=== PATIENT | female | born 1980 | race Caucasian/White ===

== ENCOUNTER 2018-04-19 16:05 | Inpatient (IN) | payer MEDICARE, MEDICAID ==
--- NOTE | 2018-04-19 16:38 | ED Physician Chart ---
ED Chief Complaint/HPI - Patient Information Date Seen:: 04/19/18 Time Seen:: 16:25 Chief Complaint:: dysuria History of Present Illness:: Patient's had dysuria for the last 2 weeks. No fever. Patient has been having more back pain than usual. Patient had a urinalysis last week which showed a urinary tract infection. Patient has a decubitus on her medial left buttock. Patient always lays in the prone position. 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 Endocrine: No polyuria, No polydipsia Psychiatric: No prior psych history Hematopoietic: No bruising Allergic/Immuno: No urticaria Neurological: No syncope ED Past Medical History - Past Medical History Past Medical History: HTN, Other (cerebral palsy; dystonic reactions) Family History: Diabetes Melitus, HTN Social History: Non Smoker, No Alcohol Surgical History: other (multiple hip, knee and foot surgeries) Psychiatricy History: None Medication: None Family Medical History - Family Member Mother History Unknown: Yes ED Physical Exam - Physical Examination Other Gen/Cons comments:: Mildly chronically ill-appearing; lying in the prone position Head: Atraumatic Eyes: Lids, conjuctiva normal, PERRL Other Skin comments:: About 2 x 1 cm stage III decubitus medial left hemibuttocks ENMT: External ears, nose nl Neck: No JVD Respiratory: Nl effort/Exclusion, Clear to Auscultation, No Wheeze/Rhonchi/Rales Cardio Vascular: RRR GI: Nondistended : No CVA tenderness Other Extremities comments:: Atrophic lower extremities Neuro/Psych: No focal deficits ED Labs/Radiology/EKG Results - Lab Results Results: Laboratory Results - last 24 hr 04/19/18 04/19/18 17:00 17:00 WBC 10.2 RBC 4.98 Hgb 15.3 Hct 45.5 MCV 91.3 MCH 30.7 MCHC Differential 33.6 RDW 12.7 Plt Count 180 MPV 7.4 Neutrophils % 85.7 H Lymphocytes % 9.7 L Monocytes % 4.0 Eosinophils % 0.6 Basophils % 0.0 Sodium 134 L Potassium 4.3 Chloride 103 Carbon Dioxide 22.8 Anion Gap 12.5 BUN 15 Creatinine 0.3 L Est GFR ( Amer) > 60.0 Est GFR (Non-Af Amer) > 60.0 BUN/Creatinine Ratio 50.0 Glucose 200 H Calcium 9.5 ED Septic Shock - . Is Septic Shock (SBP<90, OR Lactate>4 mmol\L) present?: No ED Reassessment (Disposition) - Reassessment Reassessment Condition:: Unchanged - Diagnosis Diagnosis:: Stage III decubitus; hyperglycemia; diabetes; cerebral palsy - Patient Disposition Admitted to:: Telemetry Spoke to:: Cliff Davis Admitting Medical Physician:: Cliff Davis Condition at Disposition:: Stable, Unchanged
[2018-04-19 17:08] LABS: % EOSINOPHILS 0.6 % (0.0-5.0); % LYMPHOCYTES 9.7 % (20.0-50.0); % NEUTROPHILS 85.7 % (40.0-80.0); EOSINOPHILE ABSOLUTE 0.1 Th/cmm (0.1-0.4); HEMATOCRIT 45.5 % (41.0-60); HEMOGLOBIN 15.3 gm/dL (12-16); MEAN CELL VOLUME 91.3 fl (81-100); MEAN CORPUSCULAR HEMOGLOBIN 30.7 pg (27.0-31.0); MEAN CORPUSCULAR HGB CONC 33.6 pg (28.0-36.0); MEAN PLATELET VOLUME 7.4 fl; MONOCYTE ABSOLUTE 0.4 Th/cmm (0.3-1.0); NEUTROPHILE ABSOLUTE 8.7 Th/cmm (1.8-8.0); PLATELET COUNT 180 Th/cmm (150-400); RED BLOOD COUNT 4.98 Mil/cmm (3.80-5.10); RED CELL DISTRIBUTION WIDTH 12.7 % (11.5-20.0); WHITE BLOOD COUNT 10.2 Th/cmm (4.8-10.8)
[2018-04-19 17:23] LABS: ANION GAP 12.5 (7.0-16.0); BUN - UREA NITROGEN 15 mg/dL (7-25); CALCIUM SERUM 9.5 mg/dL (8.6-10.3); CARBON DIOXIDE 22.8 mEq/L (21.0-31.0); CHLORIDE 103 mEq/L (98-107); CREATININE - SERUM 0.3 mg/dL (0.6-1.2); GFR AFRICAN-AMERICAN > 60.0 ml/min (>90); GFR NON AFRICAN-AMERICAN > 60.0 ml/min; GLUCOSE 200 mg/dL (70-105); POTASSIUM SERUM 4.3 mEq/L (3.5-5.1); SODIUM SERUM 134 mEq/L (136-145)
[2018-04-19 17:24] LABS: URINE SOURCE RANDOM
[2018-04-19 17:32] LABS: URINE BILIRUBIN NEGATIVE (NEGATIVE); URINE BLOOD NEGATIVE (NEGATIVE); URINE GLUCOSE (UA) NEGATIVE (NEGATIVE); URINE KETONE NEGATIVE (NEGATIVE); URINE LEUKOCYTE ESTERASE TRACE (NEGATIVE); URINE MICROSCOPIC INDICATED? YES; URINE NITRATE NEGATIVE (NEGATIVE); URINE PROTEIN NEGATIVE (NEGATIVE); URINE UROBILINOGEN 0.2 E.U./dL (0.2 - 1.0)
[2018-04-19 17:58] LABS: URINE CLARITY CLEAR (CLEAR); URINE COLOR YELLOW
[2018-04-19 17:59] LABS: URINE BACTERIA NONE SEEN /hpf (NONE SEEN); URINE EPITHELIAL CELLS OCCASIONAL /lpf (FEW); URINE RBC NONE SEEN /hpf (0-5)
[2018-04-19] MEDS ORDERED: guaiFENesin 200 MG/10 ML UDC PO PRN (18:34)
[2018-04-19] MEDS ORDERED: Sodium Chloride 0.45% 1,000 ML IV SCH (18:45)
[2018-04-19] MEDS: INSULIN ASPART, RECOMBINANT 100 UNITS/ML SUBQ SCH (21:55)
[2018-04-19] MEDS: Magnesium Hydroxide (MOM) 30 mL UDC PO SCH (21:58)
[2018-04-20 07:07] VITALS: BP 124/82
[2018-04-20] MEDS: INSULIN ASPART, RECOMBINANT 100 UNITS/ML SUBQ SCH ×4 (07:41→20:26)
[2018-04-20] MEDS: Insulin Detemir 100 units/mL 10mL Vial SUBQ SCH ×2 (09:20→09:28)
[2018-04-20] MEDS: Multivitamin w/ Minerals Tab PO SCH (09:20)
[2018-04-20] MEDS: Triamcinolone Acet 0.025% Cream 15 gm TP SCH ×2 (09:26→17:22)
--- NOTE | 2018-04-20 12:38 | Internal Medicine Prog Note ---
Internal Medicine Subjective - Subjective Service Date: 04/20/18 ([id number] hnp dictated) Internal Medicine Objective - Results Result Diagrams: 04/19/18 17:00 04/19/18 17:00 Recent Labs: Laboratory Last Values WBC 10.2 Th/cmm (4.8-10.8) 04/19/18 17:00 RBC 4.98 Mil/cmm (3.80-5.10) 04/19/18 17:00 Hgb 15.3 gm/dL (12-16) 04/19/18 17:00 Hct 45.5 % (41.0-60) 04/19/18 17:00 MCV 91.3 fl (81-100) 04/19/18 17:00 MCH 30.7 pg (27.0-31.0) 04/19/18 17:00 MCHC Differential 33.6 pg (28.0-36.0) 04/19/18 17:00 RDW 12.7 % (11.5-20.0) 04/19/18 17:00 Plt Count 180 Th/cmm (150-400) 04/19/18 17:00 MPV 7.4 fl 04/19/18 17:00 Neutrophils % 85.7 % (40.0-80.0) H 04/19/18 17:00 Lymphocytes % 9.7 % (20.0-50.0) L 04/19/18 17:00 Monocytes % 4.0 % (2.0-10.0) 04/19/18 17:00 Eosinophils % 0.6 % (0.0-5.0) 04/19/18 17:00 Basophils % 0.0 % (0.0-2.0) 04/19/18 17:00 Sodium 134 mEq/L (136-145) L 04/19/18 17:00 Potassium 4.3 mEq/L (3.5-5.1) 04/19/18 17:00 Chloride 103 mEq/L (98-107) 04/19/18 17:00 Carbon Dioxide 22.8 mEq/L (21.0-31.0) 04/19/18 17:00 Anion Gap 12.5 (7.0-16.0) 04/19/18 17:00 BUN 15 mg/dL (7-25) 04/19/18 17:00 Creatinine 0.3 mg/dL (0.6-1.2) L 04/19/18 17:00 Est GFR ( Amer) > 60.0 ml/min (>90) 04/19/18 17:00 Est GFR (Non-Af Amer) > 60.0 ml/min 04/19/18 17:00 BUN/Creatinine Ratio 50.0 04/19/18 17:00 Glucose 200 mg/dL (70-105) H 04/19/18 17:00 POC Glucose 211 MG/DL (70 - 105) H 04/20/18 11:33 Calcium 9.5 mg/dL (8.6-10.3) 04/19/18 17:00 Urine Source RANDOM 04/19/18 17:05 Urine Color YELLOW 04/19/18 17:05 Urine Clarity CLEAR (CLEAR) 04/19/18 17:05 Urine pH 7.0 (4.6 - 8.0) 04/19/18 17:05 Ur Specific [place] 1.010 (1.005-1.030) 04/19/18 17:05 Urine Protein NEGATIVE mg/dL (NEGATIVE) 04/19/18 17:05 Urine Glucose (UA) NEGATIVE mg/dL (NEGATIVE) 04/19/18 17:05 Urine Ketones NEGATIVE mg/dL (NEGATIVE) 04/19/18 17:05 Urine Blood NEGATIVE (NEGATIVE) 04/19/18 17:05 Urine Nitrate NEGATIVE (NEGATIVE) 04/19/18 17:05 Urine Bilirubin NEGATIVE (NEGATIVE) 04/19/18 17:05 Urine Urobilinogen 0.2 E.U./dL (0.2 - 1.0) 04/19/18 17:05 Ur Leukocyte Esterase TRACE (NEGATIVE) H 04/19/18 17:05 Urine RBC NONE SEEN /hpf (0-5) 04/19/18 17:05 Urine WBC 2-5 /hpf (0-5) 04/19/18 17:05 Ur Epithelial Cells OCCASIONAL /lpf (FEW) 04/19/18 17:05 Urine Bacteria NONE SEEN /hpf (NONE SEEN) 04/19/18 17:05 - Physical Exam Vitals and I&O: Vital Signs Temp 98.5 F 04/20/18 11:29 Pulse 90 04/20/18 11:29 Resp 18 04/20/18 11:29 BP 110/73 09/21/18 11:29 Pulse Ox 96 04/20/18 11:29 Intake & Output 04/19/18 04/20/18 04/20/18 18:59 06:59 18:59 Intake Total 50 Balance 50 Weight (lbs) 101 lb 99 lb 11.2 oz Intake: Intake, IV Amount 50 Cefepime 1 gm In Dextrose 50 5% 50 ml @ 100 mls/hr IV Q12H [facility] Rx#:[id number] Other: # Voids 2 Weight Source Patient stated Bedscale Active Medications: Current Medications Acetaminophen (Tylenol) 650 mg PO Q4H PRN PRN Reason: Pain Or Fever above 101 Stop: 06/18/18 18:33 Ascorbic Acid (Vitamin C) 500 mg PO DAILY [facility] Stop: 06/19/18 08:59 Last Admin: 04/20/18 09:20 Dose: 500 mg Baclofen (Lioresal) 20 mg PO BID [facility] Stop: 06/19/18 08:59 Last Admin: 04/20/18 09:20 Dose: 20 mg Clotrimazole (Lotrimin 1% Cream) 1 appl TP BID [facility] Stop: 06/19/18 08:59 Last Admin: 04/20/18 09:26 Dose: 1 appl Diphenhydramine HCl (Benadryl) 50 mg PO Q12H PRN PRN Reason: Itching Stop: 06/19/18 01:04 Guaifenesin (Robitussin) 200 mg PO Q4HR PRN PRN Reason: Cough or Congestion Stop: 06/18/18 18:33 Cefepime HCl 1 gm/ Dextrose 50 mls @ 100 mls/hr IV Q12H [facility] Stop: 06/18/18 18:44 Last Admin: 04/20/18 06:13 Dose: 100 mls/hr Sodium Chloride (Nacl 0.45%) 1,000 mls @ 80 mls/hr IV .[id number] [facility] Stop: 06/18/18 18:44 Last Admin: 04/19/18 21:44 Dose: 80 mls/hr Insulin Aspart (Novolog) 0 units SUBQ ACHS [facility]; Protocol Stop: 06/18/18 20:59 Last Admin: 04/20/18 12:21 Dose: 2 units Insulin Detemir (Levemir Insulin) 3 units SUBQ QAM [facility] Stop: 06/19/18 08:59 Last Admin: 04/20/18 09:28 Dose: Not Given Ketoconazole (Nizoral 2% Cream) 1 appl TP QMON [facility] Stop: 06/18/18 18:44 Last Admin: 04/19/18 23:04 Dose: Not Given Magnesium Hydroxide (Milk Of Magnesia) 30 ml PO PRN [facility] Stop: 06/18/18 18:44 Last Admin: 04/19/18 21:58 Dose: 30 ml Mycophenolate Mofetil (Cellcept) 1,500 mg PO BID [facility] Stop: 06/19/18 08:59 Last Admin: 04/20/18 09:19 Dose: 1,500 mg Ondansetron HCl (Zofran) 4 mg IV Q8H PRN PRN Reason: Nausea / Vomiting Stop: 06/18/18 18:33 Prednisone (Deltasone) 5 mg PO QAM [facility] Stop: 06/19/18 08:59 Last Admin: 04/20/18 09:19 Dose: 5 mg Silver Sulfadiazine (Ssd) 1 appl TP DAILY [facility]; Protocol Stop: 06/19/18 08:59 Last Admin: 04/20/18 09:27 Dose: 1 appl Tramadol HCl (Ultram) 50 mg PO Q6HR PRN PRN Reason: Pain (Moderate) Stop: 06/19/18 00:00 Last Admin: 04/19/18 21:32 Dose: 50 mg Triamcinolone Acetonide (Kenalog 0.025% Cre) 1 appl TP BID [facility] Stop: 06/19/18 08:59 Last Admin: 04/20/18 09:26 Dose: 1 appl Vitamin D (Vitamin D) 400 iu PO DAILY [facility] Stop: 06/19/18 12:59
[2018-04-20] MEDS ORDERED: Fleet Enema 135 mL RC ONE (15:12)
[2018-04-20] MEDS ORDERED: Probiotic Screen MC PRN (15:15)
--- NOTE | 2018-04-20 17:01 | History & Physical ---
ADMIT DATE: 04/20/2018 COVERING FOR: Dr. Cliff Davis. CHIEF COMPLAINT: Dysuria. HISTORY OF PRESENT ILLNESS: This is a 37-year-old female who is well known to me from [facility], admitted here to the telemetry unit due to a 2-week history of dysuria. The patient has been having more back pain than usual. For further management, the patient is now admitted to the telemetry unit. No reports of any fevers at [facility]. PAST MEDICAL HISTORY: Hypertension, cerebral palsy, dystonic reactions. FAMILY HISTORY: Noncontributory. SOCIAL HISTORY: The patient is a resident of [facility]. SURGICAL HISTORY: Multiple hip, knee and foot surgeries. MEDICATIONS: Vitamin C, baclofen, clotrimazole, Robitussin, insulin aspart, insulin detemir, Nizoral 2% cream, CellCept, prednisone. FAMILY HISTORY: Noncontributory. REVIEW OF SYSTEMS: GENERAL: Denies any fevers and chills. CARDIOVASCULAR: Denies chest pain. RESPIRATORY: Denies shortness of breath. GASTROINTESTINAL: Denies nausea, vomiting, abdominal pain. GENITOURINARY: Complaints of dysuria. All other systems are reviewed and are negative. PHYSICAL EXAMINATION: Young female, awake, alert, in no apparent distress. VITAL SIGNS: Temperature 98.5, heart rate 90, blood pressure 110/73, respiration 18, O2 96%. HEENT: Head: Normocephalic, atraumatic. NECK: Supple. No mass. LUNGS: Clear bilaterally. HEART: Regular rate and rhythm. No murmurs or gallops. ABDOMEN: Soft, nontender, nondistended. SKIN: The patient's left buttocks noted with 2 x stage 3 decubitus ulceration. LABORATORY DATA: WBC 10.2, H and H 15.3 and 45.5, platelet of 180. Sodium 134, potassium 4.2, chloride 103, BUN 15, creatinine 0.3. ASSESSMENT: Acute urinary tract infection, hypertension, cerebral possible palsy. PLAN: We will admit the patient to the telemetry unit. We will give IV antibiotics of Maxipime 1 gram IV q.12 hours. We will send urine for culture. Give IV fluids for hydration as well. We will have followup labs for tomorrow morning. We will continue to monitor this patient. JOB# [id number]
[2018-04-20] MEDS: Sodium Chloride 0.45% 1,000 ML IV SCH (17:21)
[2018-04-20] MEDS: Magnesium Hydroxide (MOM) 30 mL UDC PO SCH (18:19)
[2018-04-21 06:46] LABS: ALB/GLOB RATIO 1.5 (1.0-1.8); ALBUMIN 3.5 gm/dL (3.7-5.3); ALKALINE PHOSPHATASE 413 U/L (34-104); ANION GAP 10.8 (7.0-16.0); BILIRUBIN,TOTAL 0.7 mg/dL (0.3-1.0); BUN - UREA NITROGEN 13 mg/dL (7-25); CALCIUM SERUM 9.2 mg/dL (8.6-10.3); CHLORIDE 106 mEq/L (98-107); CREATININE - SERUM 0.3 mg/dL (0.6-1.2); GFR AFRICAN-AMERICAN > 60.0 ml/min (>90); GFR NON AFRICAN-AMERICAN > 60.0 ml/min; GLUCOSE 79 mg/dL (70-105); POTASSIUM SERUM 3.8 mEq/L (3.5-5.1); SGOT 73 U/L (13-39); SGPT/ALT 86 U/L (7-52); SODIUM SERUM 138 mEq/L (136-145); TOTAL PROTEIN,SERUM 5.9 gm/dL (6.0-8.3)
[2018-04-21 06:59] LABS: HEMATOCRIT 43.5 % (41.0-60); HEMOGLOBIN 14.5 gm/dL (12-16); MEAN CELL VOLUME 92.5 fl (81-100); MEAN CORPUSCULAR HEMOGLOBIN 30.8 pg (27.0-31.0); MEAN CORPUSCULAR HGB CONC 33.3 pg (28.0-36.0); PLATELET COUNT 155 Th/cmm (150-400); RED CELL DISTRIBUTION WIDTH 13.4 % (11.5-20.0)
[2018-04-21 07:00] LABS: % BASOPHILS 0.6 % (0.0-2.0); % EOSINOPHILS 2.2 % (0.0-5.0); % LYMPHOCYTES 34.3 % (20.0-50.0); % MONOCYTES 11.1 % (2.0-10.0); % NEUTROPHILS 51.8 % (40.0-80.0); EOSINOPHILE ABSOLUTE 0.2 Th/cmm (0.1-0.4); LYMPHOCYTE ABSOLUTE 2.7 Th/cmm (1.5-3.0); MEAN PLATELET VOLUME 7.8 fl; MONOCYTE ABSOLUTE 0.9 Th/cmm (0.3-1.0); NEUTROPHILE ABSOLUTE 4.2 Th/cmm (1.8-8.0)
[2018-04-21] MEDS: INSULIN ASPART, RECOMBINANT 100 UNITS/ML SUBQ SCH ×4 (07:26→21:18)
[2018-04-21] MEDS: Insulin Detemir 100 units/mL 10mL Vial SUBQ SCH (08:53)
[2018-04-21] MEDS: Multivitamin w/ Minerals Tab PO SCH (08:54)
[2018-04-21] MEDS: Triamcinolone Acet 0.025% Cream 15 gm TP SCH ×2 (09:02→16:37)
--- NOTE | 2018-04-21 15:56 | Internal Medicine Prog Note ---
Internal Medicine Subjective - Subjective Service Date: 04/21/18 Patient seen and examined:: with staff Patient is:: awake Per staff patient has:: tolerating meds Internal Medicine Objective - Results Result Diagrams: 04/21/18 05:50 04/21/18 05:50 Recent Labs: Laboratory Last Values WBC 8.0 Th/cmm (4.8-10.8) 04/21/18 05:50 RBC 4.70 Mil/cmm (3.80-5.10) 04/21/18 05:50 Hgb 14.5 gm/dL (12-16) 04/21/18 05:50 Hct 43.5 % (41.0-60) 04/21/18 05:50 MCV 92.5 fl (81-100) 04/21/18 05:50 MCH 30.8 pg (27.0-31.0) 04/21/18 05:50 MCHC Differential 33.3 pg (28.0-36.0) 04/21/18 05:50 RDW 13.4 % (11.5-20.0) 04/21/18 05:50 Plt Count 155 Th/cmm (150-400) 04/21/18 05:50 MPV 7.8 fl 04/21/18 05:50 Neutrophils % 51.8 % (40.0-80.0) 04/21/18 05:50 Lymphocytes % 34.3 % (20.0-50.0) 04/21/18 05:50 Monocytes % 11.1 % (2.0-10.0) H 04/21/18 05:50 Eosinophils % 2.2 % (0.0-5.0) 04/21/18 05:50 Basophils % 0.6 % (0.0-2.0) 04/21/18 05:50 Sodium 138 mEq/L (136-145) 04/21/18 05:50 Potassium 3.8 mEq/L (3.5-5.1) 04/21/18 05:50 Chloride 106 mEq/L (98-107) 04/21/18 05:50 Carbon Dioxide 25.0 mEq/L (21.0-31.0) 04/21/18 05:50 Anion Gap 10.8 (7.0-16.0) 04/21/18 05:50 BUN 13 mg/dL (7-25) 04/21/18 05:50 Creatinine 0.3 mg/dL (0.6-1.2) L 04/21/18 05:50 Est GFR ( Amer) > 60.0 ml/min (>90) 04/21/18 05:50 Est GFR (Non-Af Amer) > 60.0 ml/min 04/21/18 05:50 BUN/Creatinine Ratio 43.3 04/21/18 05:50 Glucose 79 mg/dL (70-105) 04/21/18 05:50 POC Glucose 198 MG/DL (70 - 105) H 04/21/18 11:33 Calcium 9.2 mg/dL (8.6-10.3) 04/21/18 05:50 Total Bilirubin 0.7 mg/dL (0.3-1.0) 04/21/18 05:50 AST 73 U/L (13-39) H 04/21/18 05:50 ALT 86 U/L (7-52) H 04/21/18 05:50 Alkaline Phosphatase 413 U/L (34-104) H 04/21/18 05:50 Total Protein 5.9 gm/dL (6.0-8.3) L 04/21/18 05:50 Albumin 3.5 gm/dL (3.7-5.3) L 04/21/18 05:50 Globulin 2.4 gm/dL 04/21/18 05:50 Albumin/Globulin Ratio 1.5 (1.0-1.8) 04/21/18 05:50 TSH 1.73 uIU/ml (0.34-5.60) 04/21/18 05:50 Urine Source RANDOM 04/19/18 17:05 Urine Color YELLOW 04/19/18 17:05 Urine Clarity CLEAR (CLEAR) 04/19/18 17:05 Urine pH 7.0 (4.6 - 8.0) 04/19/18 17:05 Ur Specific [place] 1.010 (1.005-1.030) 04/19/18 17:05 Urine Protein NEGATIVE mg/dL (NEGATIVE) 04/19/18 17:05 Urine Glucose (UA) NEGATIVE mg/dL (NEGATIVE) 04/19/18 17:05 Urine Ketones NEGATIVE mg/dL (NEGATIVE) 04/19/18 17:05 Urine Blood NEGATIVE (NEGATIVE) 04/19/18 17:05 Urine Nitrate NEGATIVE (NEGATIVE) 04/19/18 17:05 Urine Bilirubin NEGATIVE (NEGATIVE) 04/19/18 17:05 Urine Urobilinogen 0.2 E.U./dL (0.2 - 1.0) 04/19/18 17:05 Ur Leukocyte Esterase TRACE (NEGATIVE) H 04/19/18 17:05 Urine RBC NONE SEEN /hpf (0-5) 04/19/18 17:05 Urine WBC 2-5 /hpf (0-5) 04/19/18 17:05 Ur Epithelial Cells OCCASIONAL /lpf (FEW) 04/19/18 17:05 Urine Bacteria NONE SEEN /hpf (NONE SEEN) 04/19/18 17:05 - Physical Exam Vitals and I&O: Vital Signs Temp 97.8 F 04/21/18 15:44 Pulse 78 04/21/18 15:44 Resp 17 04/21/18 15:44 BP 111/68 04/21/18 15:44 Pulse Ox 95 04/21/18 15:44 Intake & Output 04/20/18 04/21/18 04/21/18 18:59 06:59 18:59 Intake Total 700 50 Balance 700 50 Weight (lbs) 101 lb 101 lb Intake: Intake, IV Amount 100 50 Cefepime 1 gm In Dextrose 100 50 5% 50 ml @ 100 mls/hr IV Q12H [facility] Rx#:[id number] Oral 600 Other: # Voids 4 3 # Bowel Movements 1 Stool Characteristics Formed Formed Weight Source Bedscale Bedscale Active Medications: Current Medications Acetaminophen (Tylenol) 650 mg PO Q4H PRN PRN Reason: Pain Or Fever above 101 Stop: 06/18/18 18:33 Ascorbic Acid (Vitamin C) 500 mg PO DAILY [facility] Stop: 06/19/18 08:59 Last Admin: 04/21/18 08:54 Dose: 500 mg Baclofen (Lioresal) 20 mg PO BID [facility] Stop: 06/19/18 08:59 Last Admin: 04/21/18 08:54 Dose: 20 mg Clotrimazole (Lotrimin 1% Cream) 1 appl TP BID [facility] Stop: 06/19/18 08:59 Last Admin: 04/21/18 09:02 Dose: 1 appl Diphenhydramine HCl (Benadryl) 50 mg PO Q12H PRN PRN Reason: Itching Stop: 06/19/18 01:04 Guaifenesin (Robitussin) 200 mg PO Q4HR PRN PRN Reason: Cough or Congestion Stop: 06/18/18 18:33 Cefepime HCl 1 gm/ Dextrose 50 mls @ 100 mls/hr IV Q12H [facility] Stop: 06/18/18 18:44 Last Infusion: 04/21/18 08:15 Dose: Infused Sodium Chloride (Nacl 0.45%) 1,000 mls @ 60 mls/hr IV .[id number] [facility] Stop: 06/19/18 13:29 Last Admin: 04/20/18 17:21 Dose: 60 mls/hr Insulin Aspart (Novolog) 0 units SUBQ ACHS [facility]; Protocol Stop: 06/18/18 20:59 Last Admin: 04/21/18 12:40 Dose: Not Given Insulin Detemir (Levemir Insulin) 3 units SUBQ QAM [facility] Stop: 06/19/18 08:59 Last Admin: 04/21/18 08:53 Dose: Not Given Ketoconazole (Nizoral 2% Cream) 1 appl TP QMON [facility] Stop: 06/18/18 18:44 Last Admin: 04/19/18 23:04 Dose: Not Given Magnesium Hydroxide (Milk Of Magnesia) 30 ml PO PRN [facility] Stop: 06/18/18 18:44 Last Admin: 04/20/18 18:19 Dose: 30 ml Miscellaneous (Probiotic Screen) 1 ea MC PRN PRN PRN Reason: PROTOCOL Stop: 06/19/18 15:14 Mycophenolate Mofetil (Cellcept) 1,500 mg PO BID [facility] Stop: 06/19/18 08:59 Last Admin: 04/21/18 09:01 Dose: 1,500 mg Ondansetron HCl (Zofran) 4 mg IV Q8H PRN PRN Reason: Nausea / Vomiting Stop: 06/18/18 18:33 Prednisone (Deltasone) 5 mg PO QAM [facility] Stop: 06/19/18 08:59 Last Admin: 04/21/18 08:54 Dose: 5 mg Silver Sulfadiazine (Ssd) 1 appl TP DAILY [facility]; Protocol Stop: 06/19/18 08:59 Last Admin: 04/21/18 09:02 Dose: 1 appl Tramadol HCl (Ultram) 50 mg PO Q6HR PRN PRN Reason: Pain (Moderate) Stop: 06/19/18 00:00 Last Admin: 04/19/18 21:32 Dose: 50 mg Triamcinolone Acetonide (Kenalog 0.025% Cre) 1 appl TP BID [facility] Stop: 06/19/18 08:59 Last Admin: 04/21/18 09:02 Dose: 1 appl Vitamin D (Vitamin D) 400 iu PO DAILY [facility] Stop: 06/19/18 12:59 Last Admin: 04/21/18 08:54 Dose: 400 iu General: weak, alert HEENT: NC/AT, PERRLA Neck: Supple Lungs: CTAB Cardiovascular: RRR, Normal S1, Normal S2, without murmur Abdomen: soft, non-tender, non-distended, positive bowel sound Extremities: hip (ulcer) Neurological: alert Internal Medicine Assmt/Plan - Assessment Assessment: acute uti with pseudomonas htn cerebral palsy - Plan Plan: continue ivabx follow up labs in am continue current plan of care Nutritional Asmnt/Malnutr-PDOC - Dietary Evaluation Malnutrition Findings (Please click <Entered> for more info): Nutritional Asmnt/Malnutrition Start: 04/20/18 13: 23 Text: Status: Complete Freq: Protocol: Document 04/20/18 13:23 LCHENG (Rec: 04/20/18 13:31 [email or web address]) Nutritional Asmnt/Malnutrition Patient General Information Nutritional Screening High Risk Diagnosis UTI Pertinent Medical Hx/Surgical Hx HTN Subjective Information Pt seen lying in bed at time of visit, awake and alert. Pt stated she has no hx of DM, blood sugar elevated recently d/t steroid. Pt has been following carb control diet for few months. Pertinent Medications vit C, novolog, levemir, 0.45% , vit D Pertinent Labs 04/19 Na 134, Cr 0.3, glucose 200, POC 109 04/20 POC 75-211 Nutritional Hx/Data Height 5 ft Height (Calculated Centimeters) 152.4 Current Weight (lbs) 100 lb Weight (Calculated Kilograms) 45.4 Weight (Calculated Grams) 19079.2 [place] Body Weight 100 Body Mass Index (BMI) 19.5 Weight Status Approriate GI Symptoms GI Symptoms None Last BM not indicated Difficult in: None Skin Integrity/Comment: stage 3 pressure ulcer to left medial buttock Estimated Nutritional Goals BEE in Kcals: Using Current wt Calories/Kcals/Kg 27-32 Kcals Calculated 6935-3146 Protein: Using Current wt Protein g/k.2-1.4 Protein Calculated 54-63 Fluid: ml 1215-1440ml (1ml/kcal) Nutritional Problem 1. Problem Problem increased nutrition needs ( calorie and protein) Etiology increased metabolic demand for wound healing Signs/Symptoms: stage 3 pressure ulcer Malnutrition Alert Is there a minimum of two criteria No selected? Query Text:Check all the applicable criteria. A minimum of two criteria are recommended for diagnosis of either severe or non-severe malnutrition. Intervention/Recommendation Comments 1. Continue with [facility] diet as ordered. Recommend Angelo BID to help with wound healing . 2. Monitor PO intake, wt, labs and skin integrity 3. F/U as high risk in 2-3 days, 04/22-04/23 Expected Outcomes/Goals Expected Outcomes/Goals 1. PO intake to meet at least 75% of nutritional needs. 2. Wt stability, skin integrity to improve, labs to approach WNL.
[2018-04-21] MEDS: Magnesium Hydroxide (MOM) 30 mL UDC PO SCH (21:07)
[2018-04-21] MEDS ORDERED: Morphine Sulfate 2 mg/mL 1mL Syr IM PRN (21:42)
[2018-04-21] MEDS: Morphine Sulfate 2 mg/mL 1mL Syr IVP PRN (22:19)
[2018-04-22] MEDS: INSULIN ASPART, RECOMBINANT 100 UNITS/ML SUBQ SCH ×4 (06:52→20:58)
[2018-04-22] MEDS: Multivitamin w/ Minerals Tab PO SCH (09:28)
[2018-04-22] MEDS: Triamcinolone Acet 0.025% Cream 15 gm TP SCH ×2 (09:28→16:42)
[2018-04-22] MEDS: Insulin Detemir 100 units/mL 10mL Vial SUBQ SCH (09:29)
--- NOTE | 2018-04-22 13:17 | Internal Medicine Prog Note ---
Internal Medicine Subjective - Subjective Service Date: 04/22/18 Patient is:: awake Per staff patient has:: tolerating meds Internal Medicine Objective - Results Result Diagrams: 04/21/18 05:50 04/21/18 05:50 Recent Labs: Laboratory Last Values WBC 8.0 Th/cmm (4.8-10.8) 04/21/18 05:50 RBC 4.70 Mil/cmm (3.80-5.10) 04/21/18 05:50 Hgb 14.5 gm/dL (12-16) 04/21/18 05:50 Hct 43.5 % (41.0-60) 04/21/18 05:50 MCV 92.5 fl (81-100) 04/21/18 05:50 MCH 30.8 pg (27.0-31.0) 04/21/18 05:50 MCHC Differential 33.3 pg (28.0-36.0) 04/21/18 05:50 RDW 13.4 % (11.5-20.0) 04/21/18 05:50 Plt Count 155 Th/cmm (150-400) 04/21/18 05:50 MPV 7.8 fl 04/21/18 05:50 Neutrophils % 51.8 % (40.0-80.0) 04/21/18 05:50 Lymphocytes % 34.3 % (20.0-50.0) 04/21/18 05:50 Monocytes % 11.1 % (2.0-10.0) H 04/21/18 05:50 Eosinophils % 2.2 % (0.0-5.0) 04/21/18 05:50 Basophils % 0.6 % (0.0-2.0) 04/21/18 05:50 Sodium 138 mEq/L (136-145) 04/21/18 05:50 Potassium 3.8 mEq/L (3.5-5.1) 04/21/18 05:50 Chloride 106 mEq/L (98-107) 04/21/18 05:50 Carbon Dioxide 25.0 mEq/L (21.0-31.0) 04/21/18 05:50 Anion Gap 10.8 (7.0-16.0) 04/21/18 05:50 BUN 13 mg/dL (7-25) 04/21/18 05:50 Creatinine 0.3 mg/dL (0.6-1.2) L 04/21/18 05:50 Est GFR ( Amer) > 60.0 ml/min (>90) 04/21/18 05:50 Est GFR (Non-Af Amer) > 60.0 ml/min 04/21/18 05:50 BUN/Creatinine Ratio 43.3 04/21/18 05:50 Glucose 79 mg/dL (70-105) 04/21/18 05:50 POC Glucose 163 MG/DL (70 - 105) H 04/22/18 12:37 Calcium 9.2 mg/dL (8.6-10.3) 04/21/18 05:50 Total Bilirubin 0.7 mg/dL (0.3-1.0) 04/21/18 05:50 AST 73 U/L (13-39) H 04/21/18 05:50 ALT 86 U/L (7-52) H 04/21/18 05:50 Alkaline Phosphatase 413 U/L (34-104) H 04/21/18 05:50 Total Protein 5.9 gm/dL (6.0-8.3) L 04/21/18 05:50 Albumin 3.5 gm/dL (3.7-5.3) L 04/21/18 05:50 Globulin 2.4 gm/dL 04/21/18 05:50 Albumin/Globulin Ratio 1.5 (1.0-1.8) 04/21/18 05:50 TSH 1.73 uIU/ml (0.34-5.60) 04/21/18 05:50 Urine Source RANDOM 04/19/18 17:05 Urine Color YELLOW 04/19/18 17:05 Urine Clarity CLEAR (CLEAR) 04/19/18 17:05 Urine pH 7.0 (4.6 - 8.0) 04/19/18 17:05 Ur Specific [place] 1.010 (1.005-1.030) 04/19/18 17:05 Urine Protein NEGATIVE mg/dL (NEGATIVE) 04/19/18 17:05 Urine Glucose (UA) NEGATIVE mg/dL (NEGATIVE) 04/19/18 17:05 Urine Ketones NEGATIVE mg/dL (NEGATIVE) 04/19/18 17:05 Urine Blood NEGATIVE (NEGATIVE) 04/19/18 17:05 Urine Nitrate NEGATIVE (NEGATIVE) 04/19/18 17:05 Urine Bilirubin NEGATIVE (NEGATIVE) 04/19/18 17:05 Urine Urobilinogen 0.2 E.U./dL (0.2 - 1.0) 04/19/18 17:05 Ur Leukocyte Esterase TRACE (NEGATIVE) H 04/19/18 17:05 Urine RBC NONE SEEN /hpf (0-5) 04/19/18 17:05 Urine WBC 2-5 /hpf (0-5) 04/19/18 17:05 Ur Epithelial Cells OCCASIONAL /lpf (FEW) 04/19/18 17:05 Urine Bacteria NONE SEEN /hpf (NONE SEEN) 04/19/18 17:05 - Physical Exam Vitals and I&O: Vital Signs Temp 98.4 F 04/22/18 11:58 Pulse 96 04/22/18 11:58 Resp 17 04/22/18 11:58 BP 115/60 04/22/18 11:58 Pulse Ox 98 04/22/18 11:58 Intake & Output 04/21/18 04/22/18 04/22/18 18:59 06:59 18:59 Intake Total 350 250 Balance 350 250 Weight (lbs) 101 lb 101 lb 101 lb Intake: Intake, IV Amount 50 50 Cefepime 1 gm In Dextrose 50 50 5% 50 ml @ 100 mls/hr IV Q12H [facility] Rx#:[id number] Oral 300 200 Other: # Voids 2 2 # Bowel Movements 1 0 Stool Characteristics Formed Formed Formed Weight Source Bedscale Bedscale Bedscale Active Medications: Current Medications Acetaminophen (Tylenol) 650 mg PO Q4H PRN PRN Reason: Pain Or Fever above 101 Stop: 06/18/18 18:33 Ascorbic Acid (Vitamin C) 500 mg PO DAILY [facility] Stop: 06/19/18 08:59 Last Admin: 04/22/18 09:27 Dose: 500 mg Baclofen (Lioresal) 20 mg PO BID [facility] Stop: 06/19/18 08:59 Last Admin: 04/22/18 09:27 Dose: 20 mg Clotrimazole (Lotrimin 1% Cream) 1 appl TP BID [facility] Stop: 06/19/18 08:59 Last Admin: 04/22/18 09:28 Dose: 1 appl Diphenhydramine HCl (Benadryl) 50 mg PO Q12H PRN PRN Reason: Itching Stop: 06/19/18 01:04 Guaifenesin (Robitussin) 200 mg PO Q4HR PRN PRN Reason: Cough or Congestion Stop: 06/18/18 18:33 Cefepime HCl 1 gm/ Dextrose 50 mls @ 100 mls/hr IV Q12H [facility] Stop: 06/18/18 18:44 Last Admin: 04/22/18 06:49 Dose: 100 mls/hr Sodium Chloride (Nacl 0.45%) 1,000 mls @ 60 mls/hr IV .[id number] [facility] Stop: 06/19/18 13:29 Last Admin: 04/20/18 17:21 Dose: 60 mls/hr Insulin Aspart (Novolog) 0 units SUBQ ACHS [facility]; Protocol Stop: 06/18/18 20:59 Last Admin: 04/22/18 12:38 Dose: Not Given Insulin Detemir (Levemir Insulin) 3 units SUBQ QAM [facility] Stop: 06/19/18 08:59 Last Admin: 04/22/18 09:29 Dose: Not Given Ketoconazole (Nizoral 2% Cream) 1 appl TP QMON [facility] Stop: 06/18/18 18:44 Last Admin: 04/19/18 23:04 Dose: Not Given Magnesium Hydroxide (Milk Of Magnesia) 30 ml PO PRN [facility] Stop: 06/18/18 18:44 Last Admin: 04/21/18 21:07 Dose: Not Given Miscellaneous (Probiotic Screen) 1 ea MC PRN PRN PRN Reason: PROTOCOL Stop: 06/19/18 15:14 Morphine Sulfate (Morphine) 1 mg IVP Q8H PRN PRN Reason: Severe Pain Stop: 06/20/18 21:43 Last Admin: 04/21/18 22:19 Dose: 1 mg Mycophenolate Mofetil (Cellcept) 1,500 mg PO BID [facility] Stop: 06/19/18 08:59 Last Admin: 04/22/18 09:28 Dose: 1,500 mg Ondansetron HCl (Zofran) 4 mg IV Q8H PRN PRN Reason: Nausea / Vomiting Stop: 06/18/18 18:33 Prednisone (Deltasone) 5 mg PO QAM [facility] Stop: 06/19/18 08:59 Last Admin: 04/22/18 09:27 Dose: 5 mg Silver Sulfadiazine (Ssd) 1 appl TP DAILY [facility]; Protocol Stop: 06/19/18 08:59 Last Admin: 04/22/18 09:28 Dose: 1 appl Tramadol HCl (Ultram) 50 mg PO Q6HR PRN PRN Reason: Pain (Moderate) Stop: 06/19/18 00:00 Last Admin: 04/19/18 21:32 Dose: 50 mg Triamcinolone Acetonide (Kenalog 0.025% Cre) 1 appl TP BID [facility] Stop: 06/19/18 08:59 Last Admin: 04/22/18 09:28 Dose: 1 appl Vitamin D (Vitamin D) 400 iu PO DAILY [facility] Stop: 06/19/18 12:59 Last Admin: 04/22/18 09:28 Dose: 400 iu General: weak, alert HEENT: NC/AT, PERRLA Neck: Supple Lungs: CTAB Cardiovascular: RRR, Normal S1, Normal S2, without murmur Abdomen: soft, non-tender, non-distended, positive bowel sound Extremities: hip (ulcer) Neurological: alert Internal Medicine Assmt/Plan - Assessment Assessment: acute uti with pseudomonas htn cerebral palsy - Plan Plan: continue ivabx follow up labs in am continue current plan of care Nutritional Asmnt/Malnutr-PDOC - Dietary Evaluation Malnutrition Findings (Please click <Entered> for more info): Nutritional Asmnt/Malnutrition Start: 04/20/18 13: 23 Text: Status: Complete Freq: Protocol: Document 04/20/18 13:23 LCTERRENCEG (Rec: 04/20/18 13:31 LCSUNIL [email or web address]) Nutritional Asmnt/Malnutrition Patient General Information Nutritional Screening High Risk Diagnosis UTI Pertinent Medical Hx/Surgical Hx HTN Subjective Information Pt seen lying in bed at time of visit, awake and alert. Pt stated she has no hx of DM, blood sugar elevated recently d/t steroid. Pt has been following carb control diet for few months. Pertinent Medications vit C, novolog, levemir, 0.45% , vit D Pertinent Labs 04/19 Na 134, Cr 0.3, glucose 200, POC 109 04/20 POC 75-211 Nutritional Hx/Data Height 5 ft Height (Calculated Centimeters) 152.4 Current Weight (lbs) 100 lb Weight (Calculated Kilograms) 45.4 Weight (Calculated Grams) 06864.2 [place] Body Weight 100 Body Mass Index (BMI) 19.5 Weight Status Approriate GI Symptoms GI Symptoms None Last BM not indicated Difficult in: None Skin Integrity/Comment: stage 3 pressure ulcer to left medial buttock Estimated Nutritional Goals BEE in Kcals: Using Current wt Calories/Kcals/Kg 27-32 Kcals Calculated 4691-9906 Protein: Using Current wt Protein g/k.2-1.4 Protein Calculated 54-63 Fluid: ml 1215-1440ml (1ml/kcal) Nutritional Problem 1. Problem Problem increased nutrition needs ( calorie and protein) Etiology increased metabolic demand for wound healing Signs/Symptoms: stage 3 pressure ulcer Malnutrition Alert Is there a minimum of two criteria No selected? Query Text:Check all the applicable criteria. A minimum of two criteria are recommended for diagnosis of either severe or non-severe malnutrition. Intervention/Recommendation Comments 1. Continue with [facility] diet as ordered. Recommend Angelo BID to help with wound healing . 2. Monitor PO intake, wt, labs and skin integrity 3. F/U as high risk in 2-3 days, 04/22-04/23 Expected Outcomes/Goals Expected Outcomes/Goals 1. PO intake to meet at least 75% of nutritional needs. 2. Wt stability, skin integrity to improve, labs to approach WNL.
[2018-04-22] MEDS: Magnesium Hydroxide (MOM) 30 mL UDC PO SCH (20:53)
[2018-04-23 06:17] LABS: % BASOPHILS 0.3 % (0.0-2.0); % LYMPHOCYTES 36.4 % (20.0-50.0); % MONOCYTES 10.4 % (2.0-10.0); % NEUTROPHILS 49.9 % (40.0-80.0); EOSINOPHILE ABSOLUTE 0.2 Th/cmm (0.1-0.4); HEMATOCRIT 40.4 % (41.0-60); HEMOGLOBIN 13.5 gm/dL (12-16); LYMPHOCYTE ABSOLUTE 2.5 Th/cmm (1.5-3.0); MEAN CELL VOLUME 92.6 fl (81-100); MEAN CORPUSCULAR HGB CONC 33.5 pg (28.0-36.0); MEAN PLATELET VOLUME 7.8 fl; MONOCYTE ABSOLUTE 0.7 Th/cmm (0.3-1.0); NEUTROPHILE ABSOLUTE 3.6 Th/cmm (1.8-8.0); PLATELET COUNT 130 Th/cmm (150-400); RED BLOOD COUNT 4.36 Mil/cmm (3.80-5.10); RED CELL DISTRIBUTION WIDTH 13.1 % (11.5-20.0)
[2018-04-23] MEDS: INSULIN ASPART, RECOMBINANT 100 UNITS/ML SUBQ SCH ×4 (06:49→21:02)
[2018-04-23 07:00] LABS: BUN - UREA NITROGEN 11 mg/dL (7-25); CALCIUM SERUM 8.9 mg/dL (8.6-10.3); CARBON DIOXIDE 21.7 mEq/L (21.0-31.0); CHLORIDE 108 mEq/L (98-107); CREATININE - SERUM 0.3 mg/dL (0.6-1.2); GFR AFRICAN-AMERICAN > 60.0 ml/min (>90); GFR NON AFRICAN-AMERICAN > 60.0 ml/min; GLUCOSE 81 mg/dL (70-105); POTASSIUM SERUM 3.7 mEq/L (3.5-5.1); SODIUM SERUM 137 mEq/L (136-145)
[2018-04-23] MEDS: Multivitamin w/ Minerals Tab PO SCH (08:15)
[2018-04-23] MEDS: Triamcinolone Acet 0.025% Cream 15 gm TP SCH ×2 (08:17→16:10)
[2018-04-23] MEDS: Insulin Detemir 100 units/mL 10mL Vial SUBQ SCH (08:22)
--- NOTE | 2018-04-23 12:55 | Internal Medicine Prog Note ---
Internal Medicine Subjective - Subjective Service Date: 04/23/18 Patient is:: awake, verbal Per staff patient has:: tolerating meds Internal Medicine Objective - Results Result Diagrams: 04/23/18 05:40 04/23/18 05:40 Recent Labs: Laboratory Last Values WBC 7.0 Th/cmm (4.8-10.8) 04/23/18 05:40 RBC 4.36 Mil/cmm (3.80-5.10) 04/23/18 05:40 Hgb 13.5 gm/dL (12-16) 04/23/18 05:40 Hct 40.4 % (41.0-60) L 04/23/18 05:40 MCV 92.6 fl (81-100) 04/23/18 05:40 MCH 31.0 pg (27.0-31.0) 04/23/18 05:40 MCHC Differential 33.5 pg (28.0-36.0) 04/23/18 05:40 RDW 13.1 % (11.5-20.0) 04/23/18 05:40 Plt Count 130 Th/cmm (150-400) L 04/23/18 05:40 MPV 7.8 fl 04/23/18 05:40 Neutrophils % 49.9 % (40.0-80.0) 04/23/18 05:40 Lymphocytes % 36.4 % (20.0-50.0) 04/23/18 05:40 Monocytes % 10.4 % (2.0-10.0) H 04/23/18 05:40 Eosinophils % 3.0 % (0.0-5.0) 04/23/18 05:40 Basophils % 0.3 % (0.0-2.0) 04/23/18 05:40 Sodium 137 mEq/L (136-145) 04/23/18 05:40 Potassium 3.7 mEq/L (3.5-5.1) 04/23/18 05:40 Chloride 108 mEq/L (98-107) H 04/23/18 05:40 Carbon Dioxide 21.7 mEq/L (21.0-31.0) 04/23/18 05:40 Anion Gap 11.0 (7.0-16.0) 04/23/18 05:40 BUN 11 mg/dL (7-25) 04/23/18 05:40 Creatinine 0.3 mg/dL (0.6-1.2) L 04/23/18 05:40 Est GFR ( Amer) > 60.0 ml/min (>90) 04/23/18 05:40 Est GFR (Non-Af Amer) > 60.0 ml/min 04/23/18 05:40 BUN/Creatinine Ratio 36.7 04/23/18 05:40 Glucose 81 mg/dL (70-105) 04/23/18 05:40 POC Glucose 137 MG/DL (70 - 105) H 04/23/18 12:24 Calcium 8.9 mg/dL (8.6-10.3) 04/23/18 05:40 Total Bilirubin 0.7 mg/dL (0.3-1.0) 04/21/18 05:50 AST 73 U/L (13-39) H 04/21/18 05:50 ALT 86 U/L (7-52) H 04/21/18 05:50 Alkaline Phosphatase 413 U/L (34-104) H 04/21/18 05:50 Total Protein 5.9 gm/dL (6.0-8.3) L 04/21/18 05:50 Albumin 3.5 gm/dL (3.7-5.3) L 04/21/18 05:50 Globulin 2.4 gm/dL 04/21/18 05:50 Albumin/Globulin Ratio 1.5 (1.0-1.8) 04/21/18 05:50 TSH 1.73 uIU/ml (0.34-5.60) 04/21/18 05:50 Urine Source RANDOM 04/19/18 17:05 Urine Color YELLOW 04/19/18 17:05 Urine Clarity CLEAR (CLEAR) 04/19/18 17:05 Urine pH 7.0 (4.6 - 8.0) 04/19/18 17:05 Ur Specific [place] 1.010 (1.005-1.030) 04/19/18 17:05 Urine Protein NEGATIVE mg/dL (NEGATIVE) 04/19/18 17:05 Urine Glucose (UA) NEGATIVE mg/dL (NEGATIVE) 04/19/18 17:05 Urine Ketones NEGATIVE mg/dL (NEGATIVE) 04/19/18 17:05 Urine Blood NEGATIVE (NEGATIVE) 04/19/18 17:05 Urine Nitrate NEGATIVE (NEGATIVE) 04/19/18 17:05 Urine Bilirubin NEGATIVE (NEGATIVE) 04/19/18 17:05 Urine Urobilinogen 0.2 E.U./dL (0.2 - 1.0) 04/19/18 17:05 Ur Leukocyte Esterase TRACE (NEGATIVE) H 04/19/18 17:05 Urine RBC NONE SEEN /hpf (0-5) 04/19/18 17:05 Urine WBC 2-5 /hpf (0-5) 04/19/18 17:05 Ur Epithelial Cells OCCASIONAL /lpf (FEW) 04/19/18 17:05 Urine Bacteria NONE SEEN /hpf (NONE SEEN) 04/19/18 17:05 - Physical Exam Vitals and I&O: Vital Signs Temp 98.3 F 04/23/18 12:08 Pulse 103 04/23/18 12:08 Resp 18 04/23/18 12:08 BP 102/79 04/23/18 12:08 Pulse Ox 95 04/23/18 12:08 Intake & Output 04/22/18 04/23/18 04/23/18 18:59 06:59 18:59 Intake Total 500 250 Balance 500 250 Weight (lbs) 101 lb 101 lb Intake: Intake, IV Amount 100 50 Cefepime 1 gm In Dextrose 100 50 5% 50 ml @ 100 mls/hr IV Q12H [facility] Rx#:[id number] Oral 400 200 Other: # Voids 3 3 # Bowel Movements 1 0 Stool Characteristics Formed Formed Soft Formed Weight Source Bedscale Bedscale Active Medications: Current Medications Acetaminophen (Tylenol) 650 mg PO Q4H PRN PRN Reason: Pain Or Fever above 101 Stop: 06/18/18 18:33 Ascorbic Acid (Vitamin C) 500 mg PO DAILY [facility] Stop: 06/19/18 08:59 Last Admin: 04/23/18 08:18 Dose: 500 mg Baclofen (Lioresal) 20 mg PO BID [facility] Stop: 06/19/18 08:59 Last Admin: 04/23/18 08:15 Dose: 20 mg Clotrimazole (Lotrimin 1% Cream) 1 appl TP BID [facility] Stop: 06/19/18 08:59 Last Admin: 04/23/18 08:17 Dose: 1 appl Diphenhydramine HCl (Benadryl) 50 mg PO Q12H PRN PRN Reason: Itching Stop: 06/19/18 01:04 Guaifenesin (Robitussin) 200 mg PO Q4HR PRN PRN Reason: Cough or Congestion Stop: 06/18/18 18:33 Cefepime HCl 1 gm/ Dextrose 50 mls @ 100 mls/hr IV Q12H [facility] Stop: 06/18/18 18:44 Last Infusion: 04/23/18 06:30 Dose: Infused Sodium Chloride (Nacl 0.45%) 1,000 mls @ 60 mls/hr IV .[id number] [facility] Stop: 06/19/18 13:29 Last Admin: 04/20/18 17:21 Dose: 60 mls/hr Insulin Aspart (Novolog) 0 units SUBQ ACHS [facility]; Protocol Stop: 06/18/18 20:59 Last Admin: 04/23/18 06:49 Dose: Not Given Insulin Detemir (Levemir Insulin) 3 units SUBQ QAM [facility] Stop: 06/19/18 08:59 Last Admin: 04/23/18 08:22 Dose: 3 unit Ketoconazole (Nizoral 2% Cream) 1 appl TP QMON [facility] Stop: 06/18/18 18:44 Last Admin: 04/19/18 23:04 Dose: Not Given Magnesium Hydroxide (Milk Of Magnesia) 30 ml PO PRN [facility] Stop: 06/18/18 18:44 Last Admin: 04/22/18 20:53 Dose: Not Given Miscellaneous (Probiotic Screen) 1 ea MC PRN PRN PRN Reason: PROTOCOL Stop: 06/19/18 15:14 Morphine Sulfate (Morphine) 1 mg IVP Q8H PRN PRN Reason: Severe Pain Stop: 06/20/18 21:43 Last Admin: 04/21/18 22:19 Dose: 1 mg Mycophenolate Mofetil (Cellcept) 1,500 mg PO BID [facility] Stop: 06/19/18 08:59 Last Admin: 04/23/18 08:16 Dose: 1,500 mg Ondansetron HCl (Zofran) 4 mg IV Q8H PRN PRN Reason: Nausea / Vomiting Stop: 06/18/18 18:33 Prednisone (Deltasone) 5 mg PO QAM [facility] Stop: 06/19/18 08:59 Last Admin: 04/23/18 08:18 Dose: 5 mg Silver Sulfadiazine (Ssd) 1 appl TP DAILY [facility]; Protocol Stop: 06/19/18 08:59 Last Admin: 04/23/18 08:16 Dose: 1 appl Tramadol HCl (Ultram) 50 mg PO Q6HR PRN PRN Reason: Pain (Moderate) Stop: 06/19/18 00:00 Last Admin: 04/19/18 21:32 Dose: 50 mg Triamcinolone Acetonide (Kenalog 0.025% Cre) 1 appl TP BID [facility] Stop: 06/19/18 08:59 Last Admin: 04/23/18 08:17 Dose: 1 appl Vitamin D (Vitamin D) 400 iu PO DAILY [facility] Stop: 06/19/18 12:59 Last Admin: 04/23/18 08:15 Dose: 400 iu General: weak, alert HEENT: NC/AT, PERRLA Neck: Supple Lungs: CTAB Cardiovascular: RRR, Normal S1, Normal S2, without murmur Abdomen: soft, non-tender, non-distended, positive bowel sound Extremities: hip (ulcer) Neurological: alert Internal Medicine Assmt/Plan - Assessment Assessment: acute uti with pseudomonas htn cerebral palsy - Plan Plan: dc planning in am continue ivabx continue current plan of care Nutritional Asmnt/Malnutr-PDOC - Dietary Evaluation Malnutrition Findings (Please click <Entered> for more info): Nutritional Asmnt/Malnutrition Start: 04/20/18 13: 23 Text: Status: Complete Freq: Protocol: Document 04/20/18 13:23 LCTERRENCEG (Rec: 04/20/18 13:31 SOLOMON [email or web address]) Nutritional Asmnt/Malnutrition Patient General Information Nutritional Screening High Risk Diagnosis UTI Pertinent Medical Hx/Surgical Hx HTN Subjective Information Pt seen lying in bed at time of visit, awake and alert. Pt stated she has no hx of DM, blood sugar elevated recently d/t steroid. Pt has been following carb control diet for few months. Pertinent Medications vit C, novolog, levemir, 0.45% , vit D Pertinent Labs 04/19 Na 134, Cr 0.3, glucose 200, POC 109 04/20 POC 75-211 Nutritional Hx/Data Height 5 ft Height (Calculated Centimeters) 152.4 Current Weight (lbs) 100 lb Weight (Calculated Kilograms) 45.4 Weight (Calculated Grams) 30663.2 [place] Body Weight 100 Body Mass Index (BMI) 19.5 Weight Status Approriate GI Symptoms GI Symptoms None Last BM not indicated Difficult in: None Skin Integrity/Comment: stage 3 pressure ulcer to left medial buttock Estimated Nutritional Goals BEE in Kcals: Using Current wt Calories/Kcals/Kg 27-32 Kcals Calculated 7103-8476 Protein: Using Current wt Protein g/k.2-1.4 Protein Calculated 54-63 Fluid: ml 1215-1440ml (1ml/kcal) Nutritional Problem 1. Problem Problem increased nutrition needs ( calorie and protein) Etiology increased metabolic demand for wound healing Signs/Symptoms: stage 3 pressure ulcer Malnutrition Alert Is there a minimum of two criteria No selected? Query Text:Check all the applicable criteria. A minimum of two criteria are recommended for diagnosis of either severe or non-severe malnutrition. Intervention/Recommendation Comments 1. Continue with [facility] diet as ordered. Recommend Angelo BID to help with wound healing . 2. Monitor PO intake, wt, labs and skin integrity 3. F/U as high risk in 2-3 days, 04/22-04/23 Expected Outcomes/Goals Expected Outcomes/Goals 1. PO intake to meet at least 75% of nutritional needs. 2. Wt stability, skin integrity to improve, labs to approach WNL.
[2018-04-23] MEDS: Sodium Chloride 0.45% 1,000 ML IV SCH (16:13)
[2018-04-23] MEDS: Magnesium Hydroxide (MOM) 30 mL UDC PO SCH (18:06)
[2018-04-23] MEDS: Morphine Sulfate 2 mg/mL 1mL Syr IVP PRN (21:11)
[2018-04-24 06:24] LABS: % BASOPHILS 0.2 % (0.0-2.0); EOSINOPHILE ABSOLUTE 0.2 Th/cmm (0.1-0.4); MEAN CORPUSCULAR HGB CONC 33.3 pg (28.0-36.0); MONOCYTE ABSOLUTE 0.8 Th/cmm (0.3-1.0)
[2018-04-24 06:55] LABS: % EOSINOPHILS 2.7 % (0.0-5.0); % LYMPHOCYTES 35.7 % (20.0-50.0); % MONOCYTES 10.1 % (2.0-10.0); % NEUTROPHILS 51.3 % (40.0-80.0); HEMOGLOBIN 13.7 gm/dL (12-16); LYMPHOCYTE ABSOLUTE 2.8 Th/cmm (1.5-3.0); MEAN CELL VOLUME 92.2 fl (81-100); MEAN CORPUSCULAR HEMOGLOBIN 30.7 pg (27.0-31.0); MEAN PLATELET VOLUME 8.4 fl; PLATELET COUNT 148 Th/cmm (150-400); RED BLOOD COUNT 4.45 Mil/cmm (3.80-5.10); RED CELL DISTRIBUTION WIDTH 13.2 % (11.5-20.0); WHITE BLOOD COUNT 7.8 Th/cmm (4.8-10.8)
[2018-04-24] MEDS: INSULIN ASPART, RECOMBINANT 100 UNITS/ML SUBQ SCH ×3 (07:39→16:40)
[2018-04-24 08:15] LABS: BUN - UREA NITROGEN 12 mg/dL (7-25); CALCIUM SERUM 8.9 mg/dL (8.6-10.3); CHLORIDE 107 mEq/L (98-107); CREATININE - SERUM 0.3 mg/dL (0.6-1.2); GFR AFRICAN-AMERICAN > 60.0 ml/min (>90); GFR NON AFRICAN-AMERICAN > 60.0 ml/min; GLUCOSE 84 mg/dL (70-105); POTASSIUM SERUM 3.7 mEq/L (3.5-5.1); SODIUM SERUM 136 mEq/L (136-145)
[2018-04-24] MEDS: Multivitamin w/ Minerals Tab PO SCH (09:23)
[2018-04-24] MEDS: Insulin Detemir 100 units/mL 10mL Vial SUBQ SCH (09:24)
[2018-04-24] MEDS: Triamcinolone Acet 0.025% Cream 15 gm TP SCH ×2 (09:25→16:31)
[2018-04-24 09:51] LABS: ANION GAP 14.1 (7.0-16.0); CARBON DIOXIDE 18.6 mEq/L (21.0-31.0)
[2018-04-24] MEDS: Sodium Chloride 0.45% 1,000 ML IV SCH (10:20)
--- NOTE | 2018-04-24 13:10 | Internal Medicine Prog Note ---
Internal Medicine Subjective - Subjective Service Date: 04/24/18 ([id number] dc [facility]) Patient is:: awake, verbal Per staff patient has:: tolerating meds Internal Medicine Objective - Results Result Diagrams: 04/24/18 04:45 04/24/18 04:45 Recent Labs: Laboratory Last Values WBC 7.8 Th/cmm (4.8-10.8) 04/24/18 04:45 RBC 4.45 Mil/cmm (3.80-5.10) 04/24/18 04:45 Hgb 13.7 gm/dL (12-16) 04/24/18 04:45 Hct 41.0 % (41.0-60) 04/24/18 04:45 MCV 92.2 fl (81-100) 04/24/18 04:45 MCH 30.7 pg (27.0-31.0) 04/24/18 04:45 MCHC Differential 33.3 pg (28.0-36.0) 04/24/18 04:45 RDW 13.2 % (11.5-20.0) 04/24/18 04:45 Plt Count 148 Th/cmm (150-400) L 04/24/18 04:45 MPV 8.4 fl 04/24/18 04:45 Neutrophils % 51.3 % (40.0-80.0) 04/24/18 04:45 Lymphocytes % 35.7 % (20.0-50.0) 04/24/18 04:45 Monocytes % 10.1 % (2.0-10.0) H 04/24/18 04:45 Eosinophils % 2.7 % (0.0-5.0) 04/24/18 04:45 Basophils % 0.2 % (0.0-2.0) 04/24/18 04:45 Sodium 136 mEq/L (136-145) 04/24/18 04:45 Potassium 3.7 mEq/L (3.5-5.1) 04/24/18 04:45 Chloride 107 mEq/L (98-107) 04/24/18 04:45 Carbon Dioxide 18.6 mEq/L (21.0-31.0) L 04/24/18 04:45 Anion Gap 14.1 (7.0-16.0) 04/24/18 04:45 BUN 12 mg/dL (7-25) 04/24/18 04:45 Creatinine 0.3 mg/dL (0.6-1.2) L 04/24/18 04:45 Est GFR ( Amer) > 60.0 ml/min (>90) 04/24/18 04:45 Est GFR (Non-Af Amer) > 60.0 ml/min 04/24/18 04:45 BUN/Creatinine Ratio 40.0 04/24/18 04:45 Glucose 84 mg/dL (70-105) 04/24/18 04:45 POC Glucose 157 MG/DL (70 - 105) H 04/24/18 11:17 Calcium 8.9 mg/dL (8.6-10.3) 04/24/18 04:45 Total Bilirubin 0.7 mg/dL (0.3-1.0) 04/21/18 05:50 AST 73 U/L (13-39) H 04/21/18 05:50 ALT 86 U/L (7-52) H 04/21/18 05:50 Alkaline Phosphatase 413 U/L (34-104) H 04/21/18 05:50 Total Protein 5.9 gm/dL (6.0-8.3) L 04/21/18 05:50 Albumin 3.5 gm/dL (3.7-5.3) L 04/21/18 05:50 Globulin 2.4 gm/dL 04/21/18 05:50 Albumin/Globulin Ratio 1.5 (1.0-1.8) 04/21/18 05:50 TSH 1.73 uIU/ml (0.34-5.60) 04/21/18 05:50 Urine Source RANDOM 04/19/18 17:05 Urine Color YELLOW 04/19/18 17:05 Urine Clarity CLEAR (CLEAR) 04/19/18 17:05 Urine pH 7.0 (4.6 - 8.0) 04/19/18 17:05 Ur Specific [place] 1.010 (1.005-1.030) 04/19/18 17:05 Urine Protein NEGATIVE mg/dL (NEGATIVE) 04/19/18 17:05 Urine Glucose (UA) NEGATIVE mg/dL (NEGATIVE) 04/19/18 17:05 Urine Ketones NEGATIVE mg/dL (NEGATIVE) 04/19/18 17:05 Urine Blood NEGATIVE (NEGATIVE) 04/19/18 17:05 Urine Nitrate NEGATIVE (NEGATIVE) 04/19/18 17:05 Urine Bilirubin NEGATIVE (NEGATIVE) 04/19/18 17:05 Urine Urobilinogen 0.2 E.U./dL (0.2 - 1.0) 04/19/18 17:05 Ur Leukocyte Esterase TRACE (NEGATIVE) H 04/19/18 17:05 Urine RBC NONE SEEN /hpf (0-5) 04/19/18 17:05 Urine WBC 2-5 /hpf (0-5) 04/19/18 17:05 Ur Epithelial Cells OCCASIONAL /lpf (FEW) 04/19/18 17:05 Urine Bacteria NONE SEEN /hpf (NONE SEEN) 04/19/18 17:05 - Physical Exam Vitals and I&O: Vital Signs Temp 98.5 F 04/24/18 11:33 Pulse 93 04/24/18 11:33 Resp 18 04/24/18 11:33 BP 121/62 04/24/18 11:33 Pulse Ox 100 04/24/18 11:33 Intake & Output 04/23/18 04/24/18 04/24/18 18:59 06:59 18:59 Intake Total 1550 1000 Balance 1550 1000 Weight (lbs) 99 lb 4.8 oz 99 lb Intake: Intake, IV Amount 50 1000 Cefepime 1 gm In Dextrose 50 5% 50 ml @ 100 mls/hr IV Q12H [facility] Rx#:[id number] Sodium Chloride 0.45% 1, 1000 000 ml @ 60 mls/hr IV . [id number] [facility] Rx#:[id number] Oral 1500 Tube Feeding 0 Other: # Voids 3 # Bowel Movements 1 Stool Characteristics Soft Formed Weight Source Bedscale Bedscale Active Medications: Current Medications Acetaminophen (Tylenol) 650 mg PO Q4H PRN PRN Reason: Pain Or Fever above 101 Stop: 06/18/18 18:33 Ascorbic Acid (Vitamin C) 500 mg PO DAILY [facility] Stop: 06/19/18 08:59 Last Admin: 04/24/18 09:24 Dose: 500 mg Baclofen (Lioresal) 20 mg PO BID [facility] Stop: 06/19/18 08:59 Last Admin: 04/24/18 09:23 Dose: 20 mg Ciprofloxacin (Cipro) 500 mg PO BID [facility] Stop: 04/29/18 16:59 Clotrimazole (Lotrimin 1% Cream) 1 appl TP BID [facility] Stop: 06/19/18 08:59 Last Admin: 04/24/18 09:24 Dose: 1 appl Guaifenesin (Robitussin) 200 mg PO Q4HR PRN PRN Reason: Cough or Congestion Stop: 06/18/18 18:33 Insulin Aspart (Novolog) 0 units SUBQ ACHS [facility]; Protocol Stop: 06/18/18 20:59 Last Admin: 04/24/18 11:27 Dose: Not Given Insulin Detemir (Levemir Insulin) 3 units SUBQ QAM [facility] Stop: 06/19/18 08:59 Last Admin: 04/24/18 09:24 Dose: Not Given Ketoconazole (Nizoral 2% Cream) 1 appl TP QMON [facility] Stop: 06/18/18 18:44 Last Admin: 04/19/18 23:04 Dose: Not Given Magnesium Hydroxide (Milk Of Magnesia) 30 ml PO PRN [facility] Stop: 06/18/18 18:44 Last Admin: 04/23/18 18:06 Dose: Not Given Miscellaneous (Probiotic Screen) 1 ea MC PRN PRN PRN Reason: PROTOCOL Stop: 06/19/18 15:14 Mycophenolate Mofetil (Cellcept) 1,500 mg PO BID [facility] Stop: 06/19/18 08:59 Last Admin: 04/24/18 09:24 Dose: 1,500 mg Prednisone (Deltasone) 5 mg PO QAM [facility] Stop: 06/19/18 08:59 Last Admin: 04/24/18 09:23 Dose: 5 mg Silver Sulfadiazine (Ssd) 1 appl TP DAILY [facility]; Protocol Stop: 06/19/18 08:59 Last Admin: 04/24/18 09:24 Dose: 1 appl Tramadol HCl (Ultram) 50 mg PO Q6HR PRN PRN Reason: Pain (Moderate) Stop: 06/19/18 00:00 Last Admin: 04/19/18 21:32 Dose: 50 mg Triamcinolone Acetonide (Kenalog 0.025% Cre) 1 appl TP BID [facility] Stop: 06/19/18 08:59 Last Admin: 04/24/18 09:25 Dose: 1 appl Vitamin D (Vitamin D) 400 iu PO DAILY [facility] Stop: 06/19/18 12:59 Last Admin: 04/24/18 09:23 Dose: 400 iu General: weak, alert HEENT: NC/AT, PERRLA Neck: Supple Lungs: CTAB Cardiovascular: RRR, Normal S1, Normal S2, without murmur Abdomen: soft, non-tender, non-distended, positive bowel sound Extremities: hip (ulcer) Neurological: alert Internal Medicine Assmt/Plan - Assessment Assessment: acute uti with pseudomonas htn cerebral palsy - Plan Plan: dc planning in am continue ivabx continue current plan of care Nutritional Asmnt/Malnutr-PDOC - Dietary Evaluation Malnutrition Findings (Please click <Entered> for more info): Nutritional Asmnt/Malnutrition Start: 04/20/18 13: 23 Text: Status: Complete Freq: Protocol: Document 04/20/18 13:23 LCHENG (Rec: 04/20/18 13:31 [id number]) Nutritional Asmnt/Malnutrition Patient General Information Nutritional Screening High Risk Diagnosis UTI Pertinent Medical Hx/Surgical Hx HTN Subjective Information Pt seen lying in bed at time of visit, awake and alert. Pt stated she has no hx of DM, blood sugar elevated recently d/t steroid. Pt has been following carb control diet for few months. Pertinent Medications vit C, novolog, levemir, 0.45% , vit D Pertinent Labs 04/19 Na 134, Cr 0.3, glucose 200, POC 109 04/20 POC 75-211 Nutritional Hx/Data Height 5 ft Height (Calculated Centimeters) 152.4 Current Weight (lbs) 100 lb Weight (Calculated Kilograms) 45.4 Weight (Calculated Grams) 97774.2 [place] Body Weight 100 Body Mass Index (BMI) 19.5 Weight Status Approriate GI Symptoms GI Symptoms None Last BM not indicated Difficult in: None Skin Integrity/Comment: stage 3 pressure ulcer to left medial buttock Estimated Nutritional Goals BEE in Kcals: Using Current wt Calories/Kcals/Kg 27-32 Kcals Calculated 2682-1311 Protein: Using Current wt Protein g/k.2-1.4 Protein Calculated 54-63 Fluid: ml 1215-1440ml (1ml/kcal) Nutritional Problem 1. Problem Problem increased nutrition needs ( calorie and protein) Etiology increased metabolic demand for wound healing Signs/Symptoms: stage 3 pressure ulcer Malnutrition Alert Is there a minimum of two criteria No selected? Query Text:Check all the applicable criteria. A minimum of two criteria are recommended for diagnosis of either severe or non-severe malnutrition. Intervention/Recommendation Comments 1. Continue with [facility] diet as ordered. Recommend Angelo BID to help with wound healing . 2. Monitor PO intake, wt, labs and skin integrity 3. F/U as high risk in 2-3 days, 04/22-04/23 Expected Outcomes/Goals Expected Outcomes/Goals 1. PO intake to meet at least 75% of nutritional needs. 2. Wt stability, skin integrity to improve, labs to approach WNL.
--- NOTE | 2018-04-24 20:14 | Progress Notes ---
DATE: 04/24/2018 COVERING FOR: Cliff Davis D.O. DISCHARGE DIAGNOSES: 1. Acute urinary tract infection with Pseudomonas. 2. Hypertension. 3. Cerebral palsy. HISTORY OF PRESENT ILLNESS: This is a 37-year-old female who is well known to me from [facility], admitted to the telemetry unit due to 2-week history of dysuria. The patient had a urine culture done at [facility] and was positive for Pseudomonas. For further management, the patient was admitted here to the telemetry unit. PHYSICAL EXAMINATION: GENERAL: The patient is well-developed, well-nourished, no apparent distress. VITAL SIGNS: Stable. HEENT: Head normocephalic, atraumatic. NECK: Supple. No mass. LUNGS: Clear bilaterally. HEART: Regular rhythm. ABDOMEN: Soft, nontender. HOSPITAL COURSE: During the hospital stay, the patient was admitted to the telemetry unit. The patient was kept on IV antibiotics of Maxipime 1 gram IV q.12 and the patient was also receiving IV fluids for hydration. Daily lab draw was being monitored as well. The patient's WBC has been within normal limits. The patient did not have any fevers during the hospital stay. For this reason, the patient was stable for discharge. CONDITION UPON DISCHARGE: Fair. DISPOSITION: [facility]. The patient is prescribed Cipro 500 mg for 5 days. JOB# [id number]
== END 2018-04-24 17:10 | DRG 689 ==
LOC: ER 16:05 → MSI 18:20 → TELE 04-20 05:37
PROVIDERS: ADMIT Internal Medicine; ATTEND Internal Medicine
DX: N39.0 Urinary tract infection, site not specified (principal); L89.93 Pressure ulcer of unspecified site, stage 3; I10 Essential (primary) hypertension; G80.9 Cerebral palsy, unspecified; E11.65 Type 2 diabetes mellitus with hyperglycemia; B96.5 Pseudomonas (aeruginosa) (mallei) (pseudomallei) as the cause of diseases classified elsewhere; Z83.3 Family history of diabetes mellitus; Z82.49 Family history of ischemic heart disease and other diseases of the circulatory system; Z79.899 Other long term (current) drug therapy
CPT/HCPCS: 36415-UA; 80048-TC; 80053-TC; 81001-TC; 82948-90; 83036-90; 84443-TC; 85025-TC; J0692; J1815; J2270; J7512; Z7610

== ENCOUNTER 2018-06-20 13:15 | Inpatient (IN) | payer MEDICARE, MEDICAID ==
[2018-06-20] MEDS ORDERED: Sodium Chloride 0.9% 1,000 ML IV ONE (13:57)
--- NOTE | 2018-06-20 14:02 | ED Physician Chart ---
ED Chief Complaint/HPI - Patient Information Date Seen:: 06/20/18 Time Seen:: 13:50 Chief Complaint:: Abdominal Pain History of Present Illness:: onset x one day of diffuse, intermittent, crampy abdominal pain, dysuria, and flank pain; pt denies trauma, H/As, S/T, neck pain, cough, C/P, SOB, Abd. pain, A/N/V/D/C, fever, chills, or hematuria Allergies:: Allergies Allergy/AdvReac Type Severity Reaction Status Date / Time nitrofurantoin Allergy Verified 04/19/18 16:33 [From Macrobid] Historian:: Patient, EMS Review:: Nurse's Note Reviewed, Old Chart Reviewed, EMS run form Reviewed ED Review of Systems - Review of Systems General/Constitutional: No fever, No chills, No weight loss, No weakness, No diaphoresis, No edema, No loss of appetite Skin: No skin lesions, No rash, No bruising Head: No headache, No light-headedness Eyes: No loss of vision, No pain, No diplopia ENT: No earache, No nasal drainage, No sore throat, No tinnitus Neck: No neck pain, No swelling, No thyromegaly, No stiffness, No mass noted Cardio Vascular: No chest pain, No palpitations, No PND, No orthopnea, No edema Pulmonary: No SOB, No cough, No sputum, No wheezing GI: Nausea, Vomiting, Diarrhea, Pain, No melena, No hematochezia, No constipation, No hematemesis G/U: Dysuria, No frequency, No hematuria, No nacturia [employer]: No vaginal discharge, No abnormal vaginal bleed, No contraction Musculoskeletal: No bone or joint pain, No back pain, No muscle pain Endocrine: No polyuria, No polydipsia Psychiatric: No prior psych history, No depression, No anxiety, No suicidal ideation, No homicidal ideation, No auditory hallucination, No visual hallucination Hematopoietic: No bruising, No lymphadenopathy Allergic/Immuno: No urticaria, No angioedema Neurological: No syncope, No focal symptoms, No weakness, No paresthesia, No headache, No seizure, No dizziness, No confusion, No vertigo ED Past Medical History - Past Medical History Obtainable: Yes Past Medical History: HTN, DM, Other (Dystonia; Hepatitis C; CP; Dystonia) Family History: Diabetes Melitus, HTN Social History: Non Smoker, No Alcohol, No Drug Use, Single, Care Facility Surgical History: None Psychiatricy History: None Medication: Reviewed Family Medical History - Family Member Mother History Unknown: Yes ED Physical Exam - Physical Examination General/Constitutional: Awake, Well-developed, well-nourished, Alert, No distress, GCS 15, Non-toxic appearing, Ambulatory Head: Atraumatic Eyes: Lids, conjuctiva normal, PERRL, EOMI Skin: Nl inspection, No rash, No skin lesions, No ecchymosis, Well hydrated, No lymphadenopathy ENMT: External ears, nose nl, TM canals nl, Nasal exam nl, Lips, teeth, gums nl , Oropharynx nl, Tonsils nl Neck: Nontender, Full ROM w/o pain, No JVD, No nuchal rigidity, No bruit, No mass, No stridor Respiratory: Nl effort/Exclusion, Clear to Auscultation, No Wheeze/Rhonchi/Rales Cardio Vascular: RRR, No murmur, gallop, rubs, NL S1 S2, Carotid/Femoral/Distal pulses equal bilaterally GI: No tenderness/rebounding/guarding, No organomegaly, No hernia, Normal BS's, Nondistended, No mass/bruits, No McBurney tenderness, Rectum exam nl Other GI comments:: no pulsatile masses : No CVA tenderness Extremities: No tenderness or effusion, Full ROM, normal strength in all extremities, No edema, Normal digits & nails Neuro/Psych: Alert/oriented, DTR's symmetric, Normal sensory exam, Normal motor strength, Judgement/insight normal, Mood normal, Normal gait, No focal deficits Misc: Normal back, No paraspinal tenderness ED Labs/Radiology/EKG Results - Lab Results Comments:: Reviewed - Radiology Results Comments:: + Renal Stones; Distended GB; Distended Left Colon with Air; Partial Strangulation; Left Flank Hernia; Splenomegaly - EKG Interpretations EKG Time:: 14:31 Rate & Rhythm: 107; ST Comments:: non-specific st-t changes ED Septic Shock - . Is Septic Shock (SBP<90, OR Lactate>4 mmol\L) present?: No ED Reassessment (Disposition) - Reassessment Reassessment Condition:: Improved - Diagnosis Diagnosis:: Abdominal Pain; Flank Pain; Leukocytosis; Elevated LFTs; Hyperglycemia; DM; UTI ; Nephrolithiasis; Left Flank Hernia; Partial Bowel Strangulation; Sepsis; Dehydration; Tachycardia - Aftercare/Follow up Instructions Aftercare/Follow-Up Instructions:: Counseled pt regarding lab results/diagnosis & need follow up, Counseled pt & family regarding lab results/diagnosis & need follow up - Patient Disposition Discharge/Transfer:: Acute Care w/in this hosp Accepting Physician:: Dr. Davis Time Called:: 0741 Time Responded:: 16:45 Admitted to:: Telemetry Spoke to:: Dr. Davis Admitting Medical Physician:: Dr. Davis Condition at Disposition:: Stable, Improved
[2018-06-20 14:15] LABS: % BASOPHILS 0.5 % (0.0-2.0); % EOSINOPHILS 0.9 % (0.0-5.0); % LYMPHOCYTES 9.7 % (20.0-50.0); % MONOCYTES 5.6 % (2.0-10.0); % NEUTROPHILS 83.3 % (40.0-80.0); BASOPHILE ABSOLUTE 0.1 Th/cumm (0-0.2); EOSINOPHILE ABSOLUTE 0.1 Th/cmm (0.1-0.4); HEMATOCRIT 42.8 % (41.0-60); HEMOGLOBIN 14.1 gm/dL (12-16); LYMPHOCYTE ABSOLUTE 1.2 Th/cmm (1.5-3.0); MEAN CELL VOLUME 93.6 fl (81-100); MEAN CORPUSCULAR HEMOGLOBIN 30.8 pg (27.0-31.0); MEAN CORPUSCULAR HGB CONC 32.9 pg (28.0-36.0); MEAN PLATELET VOLUME 7.9 fl; MONOCYTE ABSOLUTE 0.7 Th/cmm (0.3-1.0); NEUTROPHILE ABSOLUTE 10.1 Th/cmm (1.8-8.0); PLATELET COUNT 154 Th/cmm (150-400); RED BLOOD COUNT 4.57 Mil/cmm (3.80-5.10); RED CELL DISTRIBUTION WIDTH 14.2 % (11.5-20.0); WHITE BLOOD COUNT 12.2 Th/cmm (4.8-10.8)
[2018-06-20 14:34] LABS: PROTHROMBIN TIME (TEST) 10.4 SECONDS (9.5-11.5)
[2018-06-20 14:36] LABS: ALB/GLOB RATIO 1.4 (1.0-1.8); ALBUMIN 3.5 gm/dL (3.7-5.3); ALKALINE PHOSPHATASE 323 U/L (34-104); ANION GAP 13.2 (7.0-16.0); BILIRUBIN,TOTAL 0.5 mg/dL (0.3-1.0); BUN - UREA NITROGEN 16 mg/dL (7-25); CARBON DIOXIDE 23.7 mEq/L (21.0-31.0); CHLORIDE 104 mEq/L (98-107); CHOLESTEROL 211 mg/dL (<200); CREATININE - SERUM 0.5 mg/dL (0.6-1.2); CREATININE KINASE 17 U/L (30-223); GFR AFRICAN-AMERICAN > 60.0 ml/min (>90); GFR NON AFRICAN-AMERICAN > 60.0 ml/min; GLUCOSE 238 mg/dL (70-105); HDL -HIGH DENSITY LIPOPROTEIN 67 mg/dL (23-92); POTASSIUM SERUM 3.9 mEq/L (3.5-5.1); SGOT 79 U/L (13-39); SGPT/ALT 100 U/L (7-52); SODIUM SERUM 137 mEq/L (136-145); TOTAL PROTEIN,SERUM 6.1 gm/dL (6.0-8.3); TRIGLYCERIDES 94 mg/dL (<150)
[2018-06-20 14:37] LABS: AMYLASE SERUM 43 U/L (29-103); LIPASE 38 U/L (11-82)
[2018-06-20 15:16] LABS: URINE SOURCE CLEAN C
[2018-06-20 15:19] LABS: URINE BILIRUBIN NEGATIVE (NEGATIVE); URINE BLOOD LARGE (NEGATIVE); URINE GLUCOSE (UA) NEGATIVE (NEGATIVE); URINE KETONE NEGATIVE (NEGATIVE); URINE LEUKOCYTE ESTERASE LARGE (NEGATIVE); URINE MICROSCOPIC INDICATED? YES; URINE NITRATE NEGATIVE (NEGATIVE); URINE PH 6.5 (4.6 - 8.0); URINE PROTEIN NEGATIVE (NEGATIVE); URINE UROBILINOGEN 0.2 E.U./dL (0.2 - 1.0)
[2018-06-20 15:26] LABS: URINE COLOR YELLOW
[2018-06-20 15:27] LABS: URINE CLARITY CLEAR (CLEAR)
[2018-06-20 15:28] LABS: URINE BACTERIA FEW /hpf (NONE SEEN); URINE EPITHELIAL CELLS FEW /lpf (FEW)
[2018-06-20] MEDS ORDERED: cefTRIAXone 1 GM in Sodium Chloride 0.9% 50 ML IV ONE (16:09)
[2018-06-20 21:39] VITALS: BP 142/94
[2018-06-20] MEDS ORDERED: Magnesium Hydroxide (MOM) 30 mL UDC PO PRN (22:24)
[2018-06-20] MEDS ORDERED: PSEUDOEPHEDRINE HCL PO PRN (22:24)
[2018-06-20] MEDS ORDERED: DIPHENHYDRAMINE HCL PO PRN (22:24)
[2018-06-20] MEDS ORDERED: guaiFENesin 200 MG/10 ML UDC PO PRN (22:29)
[2018-06-20] MEDS ORDERED: Hydrocodone/APAP 5mg/325mg Tab PO PRN (22:29)
[2018-06-20] MEDS ORDERED: Maalox 30 mL Cup PO PRN (22:29)
--- NOTE | 2018-06-20 23:14 | History & Physical ---
ADMIT DATE: 06/20/2018 INTERNAL MEDICINE HISTORY AND PHYSICAL CHIEF COMPLAINT: Abdominal pain and a diagnosis of ESBL, UTI. HISTORY OF PRESENT ILLNESS: This is a 37-year-old female with history of cerebral palsy, chronic dystonia, hypertension, diabetes, bedbound, chronic liver failure, admitted from nursing facility secondary to worsening abdominal and pelvic pain. The patient was recently diagnosed with ESBL E. coli in the urine, was started on Macrobid, her symptoms has slightly improved. PAST MEDICAL HISTORY: As mentioned in history of present illness. PAST SURGICAL HISTORY: Multiple, hip, knee, and foot surgeries. MEDICATIONS: The patient is on insulin sliding scale, baclofen, vitamin C, budesonide, vitamin D3, cranberry, Benadryl, mycophenolate, Sudafed, tramadol, and Macrobid. ALLERGIES: THE PATIENT IS ALLERGIC TO SULFA AND BACTRIM. SOCIAL HISTORY: The patient lives in long term. The patient requiring 24-hour total care. FAMILY HISTORY: Noncontributory. REVIEW OF SYSTEMS: This is limited secondary to the patient's comatose state. We will try to obtain more detailed review of systems at a later date by talking to family members and nursing staff at [facility]. PHYSICAL EXAMINATION: VITAL SIGNS: Blood pressure is 142/94, respirations 17, pulse is 91, O2 is 100%, and temperature is 98.2. GENERAL: The patient is a young female, appears chronically ill. NECK: Supple. No mass. LUNGS: Equal breath sounds, few rhonchi. HEART: Regular rate and rhythm. Systolic ejection without appreciable murmurs. ABDOMEN: Soft, globular. EXTREMITIES: Positive excoriations. Positive contractures. Atrophy. NEUROLOGIC: Limited. LABORATORY DATA: WBC is 12, hemoglobin is 14, and platelets ____. BUN is 15 and creatinine is 0.5. Blood sugar is 238. AST and ALT is 79 and 100 and alkaline phosphatase is 323. Cholesterol is 211. UA again is positive for E. coli ESBL. ASSESSMENT: Abdominal pain/pelvic pain, urinary tract infection, extended-spectrum beta-lactamase Escherichia coli, cerebral palsy, hypertension, and functional quadriplegia. PLAN: We will continue the patient on IV antibiotic, currently on IV Zosyn. We will review the patient's CT abdomen and pelvis and depending on results we may refer the patient to GI. We will continue to monitor the patient's liver function test. Continue with current care with followup consult and recommendations. JOB# [id number]
[2018-06-21 06:53] LABS: % BASOPHILS 0.9 % (0.0-2.0); % EOSINOPHILS 1.5 % (0.0-5.0); % LYMPHOCYTES 29.7 % (20.0-50.0); % MONOCYTES 8.2 % (2.0-10.0); % NEUTROPHILS 59.7 % (40.0-80.0); BASOPHILE ABSOLUTE 0.1 Th/cumm (0-0.2); EOSINOPHILE ABSOLUTE 0.2 Th/cmm (0.1-0.4); HEMATOCRIT 45.5 % (41.0-60); HEMOGLOBIN 14.9 gm/dL (12-16); LYMPHOCYTE ABSOLUTE 3.2 Th/cmm (1.5-3.0); MEAN CELL VOLUME 92.6 fl (81-100); MEAN CORPUSCULAR HEMOGLOBIN 30.3 pg (27.0-31.0); MEAN CORPUSCULAR HGB CONC 32.7 pg (28.0-36.0); MEAN PLATELET VOLUME 7.9 fl; MONOCYTE ABSOLUTE 0.9 Th/cmm (0.3-1.0); NEUTROPHILE ABSOLUTE 6.3 Th/cmm (1.8-8.0); PLATELET COUNT 161 Th/cmm (150-400); RED BLOOD COUNT 4.91 Mil/cmm (3.80-5.10); RED CELL DISTRIBUTION WIDTH 14.2 % (11.5-20.0); WHITE BLOOD COUNT 10.7 Th/cmm (4.8-10.8)
[2018-06-21 07:05] LABS: BUN - UREA NITROGEN 10 mg/dL (7-25); CALCIUM SERUM 9.2 mg/dL (8.6-10.3); CARBON DIOXIDE 22.5 mEq/L (21.0-31.0); CHLORIDE 108 mEq/L (98-107); CREATININE - SERUM 0.3 mg/dL (0.6-1.2); GFR AFRICAN-AMERICAN > 60.0 ml/min (>90); GFR NON AFRICAN-AMERICAN > 60.0 ml/min; POTASSIUM SERUM 3.5 mEq/L (3.5-5.1); SODIUM SERUM 141 mEq/L (136-145)
[2018-06-21 07:14] LABS: GLUCOSE 72 mg/dL (70-105)
[2018-06-21] MEDS: INSULIN ASPART, RECOMBINANT 100 UNITS/ML SUBQ SCH ×4 (07:44→21:30)
[2018-06-21] MEDS: Pantoprazole 40 mg EC Tab PO SCH ×2 (08:32→16:28)
[2018-06-21] MEDS ORDERED: BACLOFEN 20 MG PO SCH (09:00)
[2018-06-21] MEDS ORDERED: BUDESONIDE 9 MG PO SCH (09:00)
[2018-06-21] MEDS ORDERED: ASCORBIC ACID PO SCH (09:00)
[2018-06-21] MEDS ORDERED: ASCORBATE SODIUM PO SCH (09:00)
[2018-06-21] MEDS ORDERED: CRANBERRY FRUIT EXTRACT PO SCH (09:00)
[2018-06-21] MEDS ORDERED: MYCOPHENOLATE MOFETIL 1500 MG PO SCH (09:00)
[2018-06-21] MEDS ORDERED: Non-Formulary Item 1 EA (Multivit,Th Iron,Other Min [Thera-M] 1 TAB) PO SCH (09:00)
[2018-06-21] MEDS ORDERED: [UNRECOGNIZED DRUG - OTHER] PO SCH (09:00)
--- NOTE | 2018-06-21 09:46 | Diagnostic Imaging Report ---
CT abdomen and pelvis without intravenous contrast Indication: Abdominal pain and flank pain Comparison: None, Technique: Axial images were obtained from the lung bases to the bilateral proximal femurs without IV contrast. Coronal reconstructions were made. total DLP: 382, CTDI7.9 FINDINGS: Hypoventilatory and atelectatic changes of the lung bases are noted. Assessment of the solid organs is limited due to lack of IV contrast. The liver demonstrates a heterogeneous echotexture. No radiopaque gallstones. Limited assessment of the spleen demonstrates no obvious focal lesions. Mild splenomegaly is noted. Limited assessment of pancreas demonstrates no focal lesions. The right adrenal gland is not well-visualized. Multiple nonobstructive bilateral renal stones noted the largest on the right side measuring 7 mm. No hydronephrosis. A stimulator apparatus is noted with reservoir along the right lower quadrant. There is massive distal fecal impaction with mass effect upon the urinary bladder. There is high density seen along the anterior aspect of the urinary bladder. Generalized gaseous filled loops of bowel are noted with air distention of the colon greatest along the left upper quadrant. Appendix is not well-visualized. There is a hernia is seen along the left posterior flank region with herniation of bowel loops in this region. Advanced degenerative changes of the spine are noted with its spinal scoliosis. There is diffuse cachexia. There is abnormal superior angulation of the sacrum an increase of the lumbar lordosis. There is close proximity of the sacrum and coccyx to the skin surface. IMPRESSION: Massive distal fecal impaction with associated mass effect upon the urinary bladder. Left posterior flank hernia with herniation of bowel loops which is primarily large bowel loops. Partial obstruction or low-grade strangulation cannot be excluded. Clinical correlation and follow-up is recommended. High density along the anterior aspect the urinary bladder. Findings may resent bladder stones. Clinical correlation follow-up is recommended. Urinary bladder wall thickening/ infectious inflammatory or infiltrative process cannot be excluded. Mild splenomegaly. Nonobstructive bilateral renal stones. Spinal stimulator apparatuses reservoir along the right lower quadrant. Please correlate with patient's clinical history. Deformity of the spine with spinal scoliosis. There is severe accentuation of the lumbar lordosis with close proximity of the distal sacrococcygeal region to the skin. Please correlate clinically. 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 Please refer to above for details.
--- NOTE | 2018-06-21 14:10 | Internal Medicine Prog Note ---
Internal Medicine Subjective - Subjective Patient seen and examined:: with staff, chart reviewed, other (family at bedside ) Patient is:: awake, verbal, interactive, in bed, other (laying face down) Patient Complaints of:: congestion, constipation, pain with urination Per staff patient has:: no adverse event, no episodes of fall, poor oral intake , tolerating meds Internal Medicine Objective - Results Result Diagrams: 06/21/18 06:30 06/21/18 06:30 Recent Labs: Laboratory Last Values WBC 10.7 Th/cmm (4.8-10.8) 06/21/18 06:30 RBC 4.91 Mil/cmm (3.80-5.10) 06/21/18 06:30 Hgb 14.9 gm/dL (12-16) 06/21/18 06:30 Hct 45.5 % (41.0-60) 06/21/18 06:30 MCV 92.6 fl (81-100) 06/21/18 06:30 MCH 30.3 pg (27.0-31.0) 06/21/18 06:30 MCHC Differential 32.7 pg (28.0-36.0) 06/21/18 06:30 RDW 14.2 % (11.5-20.0) 06/21/18 06:30 Plt Count 161 Th/cmm (150-400) 06/21/18 06:30 MPV 7.9 fl 06/21/18 06:30 Neutrophils % 59.7 % (40.0-80.0) 06/21/18 06:30 Lymphocytes % 29.7 % (20.0-50.0) 06/21/18 06:30 Monocytes % 8.2 % (2.0-10.0) 06/21/18 06:30 Eosinophils % 1.5 % (0.0-5.0) 06/21/18 06:30 Basophils % 0.9 % (0.0-2.0) 06/21/18 06:30 PT 10.4 SECONDS (9.5-11.5) 06/20/18 13:50 INR 1.00 (0.5-1.4) 06/20/18 13:50 Sodium 141 mEq/L (136-145) 06/21/18 06:30 Potassium 3.5 mEq/L (3.5-5.1) 06/21/18 06:30 Chloride 108 mEq/L (98-107) H 06/21/18 06:30 Carbon Dioxide 22.5 mEq/L (21.0-31.0) 06/21/18 06:30 Anion Gap 14.0 (7.0-16.0) 06/21/18 06:30 BUN 10 mg/dL (7-25) 06/21/18 06:30 Creatinine 0.3 mg/dL (0.6-1.2) L 06/21/18 06:30 Est GFR ( Amer) > 60.0 ml/min (>90) 06/21/18 06:30 Est GFR (Non-Af Amer) > 60.0 ml/min 06/21/18 06:30 BUN/Creatinine Ratio 33.3 06/21/18 06:30 Glucose 72 mg/dL (70-105) D 06/21/18 06:30 POC Glucose 158 MG/DL (70 - 105) H 06/21/18 11:26 Calcium 9.2 mg/dL (8.6-10.3) 06/21/18 06:30 Magnesium 2.0 mg/dL (1.9-2.7) 06/21/18 06:30 Total Bilirubin 0.5 mg/dL (0.3-1.0) 06/20/18 13:50 AST 79 U/L (13-39) H 06/20/18 13:50 ALT 100 U/L (7-52) H 06/20/18 13:50 Alkaline Phosphatase 323 U/L (34-104) H 06/20/18 13:50 Creatine Kinase 17 U/L (30-223) L 06/20/18 13:50 Troponin I 0.02 ng/mL (0.01-0.05) 06/20/18 13:50 B-Natriuretic Peptide 14.5 pg/mL (5.0-100.0) 06/20/18 13:50 Total Protein 6.1 gm/dL (6.0-8.3) 06/20/18 13:50 Albumin 3.5 gm/dL (3.7-5.3) L 06/20/18 13:50 Globulin 2.6 gm/dL 06/20/18 13:50 Albumin/Globulin Ratio 1.4 (1.0-1.8) 06/20/18 13:50 Triglycerides 94 mg/dL (<150) 06/20/18 13:50 Cholesterol 211 mg/dL (<200) H 06/20/18 13:50 LDL Cholesterol Direct 130 mg/dL (75-193) 06/20/18 13:50 HDL Cholesterol 67 mg/dL (23-92) 06/20/18 13:50 Amylase 43 U/L (29-103) 06/20/18 13:50 Lipase 38 U/L (11-82) 06/20/18 13:50 TSH 3.23 uIU/ml (0.34-5.60) 06/21/18 06:30 Serum , Qual NEGATIVE (NEGATIVE) 06/20/18 13:58 Urine Source CLEAN C 06/20/18 15:00 Urine Color YELLOW 06/20/18 15:00 Urine Clarity CLEAR (CLEAR) 06/20/18 15:00 Urine pH 6.5 (4.6 - 8.0) 06/20/18 15:00 Ur Specific [place] 1.015 (1.005-1.030) 06/20/18 15:00 Urine Protein NEGATIVE mg/dL (NEGATIVE) 06/20/18 15:00 Urine Glucose (UA) NEGATIVE mg/dL (NEGATIVE) 06/20/18 15:00 Urine Ketones NEGATIVE mg/dL (NEGATIVE) 06/20/18 15:00 Urine Blood LARGE (NEGATIVE) H 06/20/18 15:00 Urine Nitrate NEGATIVE (NEGATIVE) 06/20/18 15:00 Urine Bilirubin NEGATIVE (NEGATIVE) 06/20/18 15:00 Urine Urobilinogen 0.2 E.U./dL (0.2 - 1.0) 06/20/18 15:00 Ur Leukocyte Esterase LARGE (NEGATIVE) H 06/20/18 15:00 Urine RBC 5-10 /hpf (0-5) H 06/20/18 15:00 Urine WBC 2-5 /hpf (0-5) 06/20/18 15:00 Ur Epithelial Cells FEW /lpf (FEW) 06/20/18 15:00 Urine Bacteria FEW /hpf (NONE SEEN) 06/20/18 15:00 Urine Test NEGATIVE 06/20/18 15:00 - Physical Exam Vitals and I&O: Vital Signs Temp 98.4 F 11/22/18 13:12 Pulse 82 06/21/18 13:12 Resp 18 06/21/18 13:12 BP 132/78 06/21/18 13:12 Pulse Ox 98 06/21/18 13:12 Intake & Output 06/20/18 06/21/18 06/21/18 18:59 06:59 18:59 Intake Total 100 Output Total 2 Balance 98 Weight (lbs) 45.813 kg 41.005 kg Intake: Intake, IV Amount 100 Piperacillin Sodium/ 100 Tazobact 4.5 gm In Sodium Chloride 0.9% 100 ml @ 100 mls/hr IV Q8HR [facility] Rx #:[id number] Output: Stool 2 Other: # Voids 1 Stool Characteristics Formed Weight Source Patient stated Bedscale Active Medications: Current Medications Acetaminophen (Tylenol) 650 mg PO Q4H PRN PRN Reason: Pain Or Fever above 101 Stop: 08/19/18 22:28 Acetaminophen/Hydrocodone Bitart ([place] 5mg/325mg) 1 tab PO Q4H PRN PRN Reason: Pain (Severe) Stop: 08/19/18 22:28 Al Hydrox/Mg Hydrox/Simethicone (Maalox) 30 ml PO Q6H PRN PRN Reason: Dyspepsia Stop: 08/19/18 22:28 Ascorbic Acid (Vitamin C) 500 mg PO DAILY [facility] Stop: 08/21/18 08:59 Baclofen (Lioresal) 20 mg PO BID [facility] Stop: 08/20/18 16:59 Clotrimazole (Lotrimin 1% Cream) 1 appl TP BID PRN PRN Reason: Psoriasis or Fungal Infection Stop: 08/19/18 22:23 Diphenhydramine HCl (Benadryl) 25 mg PO Q12H PRN PRN Reason: ITCHING Stop: 08/20/18 10:29 Guaifenesin (Robitussin) 200 mg PO Q4HR PRN PRN Reason: Cough or Congestion Stop: 08/19/18 22:28 Piperacillin Sod/Tazobactam (Sod 4.5 gm/ Sodium Chloride) 100 mls @ 100 mls/hr IV Q8HR [facility] Stop: 08/20/18 04:59 Last Admin: 06/21/18 12:02 Dose: 100 mls/hr Insulin Aspart (Novolog) 0 units SUBQ ACHS [facility]; Protocol Stop: 08/20/18 07:29 Last Admin: 06/21/18 11:57 Dose: Not Given Lactulose (Cephulac) 30 gm PO BID [facility] Stop: 08/20/18 16:59 Magnesium Hydroxide (Milk Of Magnesia) 30 ml PO Q2D PRN PRN Reason: Constipation Stop: 08/19/18 22:23 Miscellaneous (Budesonide [Budesonide Ec]) 9 mg PO DAILY [facility] Stop: 08/20/18 08:59 Mycophenolate Mofetil (Cellcept) 1,500 mg PO BID [facility] Stop: 08/20/18 16:59 Ondansetron HCl (Zofran) 4 mg IV Q8H PRN PRN Reason: Nausea / Vomiting Stop: 08/19/18 22:28 [facility] Stop: 08/20/18 07:29 Last Admin: 06/21/18 08:32 Dose: 40 mg Polyethylene Glycol (Miralax) 17 gm PO BID [facility] Stop: 08/20/18 16:59 Pseudoephedrine HCl (Sudafed) 60 mg PO Q6H PRN PRN Reason: CONGESTION Stop: 08/20/18 10:31 Tramadol HCl (Ultram) 50 mg PO Q6HR PRN PRN Reason: Pain (Severe) Stop: 08/19/18 22:23 Last Admin: 06/21/18 06:20 Dose: 50 mg Vitamin D (Vitamin D) 400 iu PO DAILY [facility] Stop: 08/20/18 08:59 Last Admin: 06/21/18 08:32 Dose: 400 iu General: alert HEENT: NC/AT, PERRLA Neck: Supple, No JVD Lungs: rales, ronchi, chest deformity present Cardiovascular: RRR, Normal S1, Normal S2 Abdomen: soft, non-tender, globular Extremities: excoriation, contracture, deformity Neurological: no change Internal Medicine Assmt/Plan - Assessment Assessment: ASSESSMENT: Abdominal pain/pelvic pain, sever impaction,urinary tract infection , extended-spectrum beta-lactamase Escherichia coli, cerebral palsy, hypertension, and functional quadriplegia. - Plan Plan: PLAN: We will continue the patient on IV antibiotic, currently on IV Zosyn. We will review the patient's CT abdomen and pelvis and depending on results we may refer the patient to GI. We will continue to monitor the patient's liver function test. Continue with current care with followup consult and recommendations. Nutritional Asmnt/Malnutr-PDOC - Dietary Evaluation Malnutrition Findings (Please click <Entered> for more info): Nutritional Asmnt/Malnutrition Start: 06/21/18 09: 34 Text: Status: Active Freq: Protocol: Document 06/21/18 10:12 [facility] (Rec: 06/21/18 10:30 [email or web address] Nutritional Asmnt/Malnutrition Patient General Information Nutritional Screening High Risk Consult Diagnosis UTI&abd pain Pertinent Medical Hx/Surgical Hx HTN, DM, dystonia, hypatitis c , CP Subjective Information Consult received for blood sugar 238 at admission... Current Diet Order/ Nutrition Support regular Pertinent Medications novolog, protonix, piperacillin, vit D Pertinent Labs 06/21 Cl 108, cr 0.3, glucose 72, Ca 9.2, Mg 2.0 06/20 Cl 104, Cr 0.5, glucose 238, Ca 9.0 Nutritional Hx/Data Height 1.55 m Height (Calculated Centimeters) 154.9 Current Weight (lbs) 40.823 kg Weight (Calculated Kilograms) 40.8 Weight (Calculated Grams) 46732.3 [place] Body Weight 105 Body Mass Index (BMI) 16.9 Weight Status Underweight GI Symptoms Skin Integrity/Comment: pressure area to right lower abd, R/L foot, scar to left lower back and left buttocks [place] 13 Estimated Nutritional Goals BEE in Kcals: Using Current wt Calories/Kcals/Kg 30-35 Kcals Calculated 3457-1361 Protein: Using Current wt Protein g/k.2-1.4 Protein Calculated 49-57 Fluid: ml 1230-1435ml (1ml/kcal) Nutritional Problem 1. Problem Problem altered nutrition related labs Etiology hx of DM, endocrine dysfunction Signs/Symptoms: BS 238 at admission Intervention/Recommendation Comments ....
[2018-06-21] MEDS: Lactulose 10 Gm/15 mL 30mL UDC PO SCH (16:28)
[2018-06-21] MEDS: POLYETHYLENE GLYCOL 3350 17 GM PACK PO SCH (16:28)
[2018-06-22] MEDS: INSULIN ASPART, RECOMBINANT 100 UNITS/ML SUBQ SCH ×4 (07:04→22:48)
[2018-06-22] MEDS: Pantoprazole 40 mg EC Tab PO SCH ×2 (07:06→17:08)
--- NOTE | 2018-06-22 08:31 | Consultation ---
DATE OF CONSULTATION: 06/22/2018 INPATIENT GASTROINTESTINAL CONSULTATION CONSULTING PHYSICIAN: Dr. Davis. REASON FOR CONSULTATION: Fecal impaction. HISTORY OF PRESENT ILLNESS: The patient is a 37-year-old female with a history of cerebral palsy, dystonia, hypertension and type 2 diabetes, admitted from her nursing facility for abdominal pain and pelvic related pain. The patient was seen in the ER, diagnosed with a urinary tract infection and also fecal impaction by CT imaging. She has been started on Macrobid and reports she has no pain this morning; however, she only had a slight bowel movement overnight and most likely still is impacted. PAST MEDICAL HISTORY: Cerebral palsy, dystonia, hypertension, type 2 diabetes. PAST SURGICAL HISTORY: Hip, knee and foot surgeries. FAMILY HISTORY: Noncontributory. SOCIAL HISTORY: The patient does not smoke, drink or use illicit drugs. She lives in a nursing facility. REVIEW OF SYSTEMS: Limited given the patient's reduced ability to participate in the interview. CURRENT MEDICATIONS: Include Tylenol, [place], Maalox, vitamin C, baclofen, Benadryl, Robitussin, insulin, lactulose, Protonix, Zofran as needed, CellCept, Zosyn, vitamin D, tramadol. PHYSICAL EXAMINATION: VITAL SIGNS: Blood pressure is 119/75, pulse 82 beats per minute, temperature 98.8, oximetry 98%. GENERAL: The patient is lying on her stomach in bed, prone position; no apparent distress; eating breakfast. HEAD, EARS, EYES, NOSE AND THROAT: Normocephalic and atraumatic appearing head. Pupils are equal and reactive to light. Extraocular muscles appear to be intact. Moist mucous membranes. NECK: Supple. There is no obvious JVD. CHEST: There are no obvious crackles or rales. CARDIOVASCULAR: S1 and S2 are present, regular rate and rhythm. ABDOMEN: No pain on palpation. There is no guarding or rebound. No fluid distention. EXTREMITIES: 1+ pitting edema bilaterally. Pulses are not present. SKIN: There is no obvious jaundice. LABORATORY DATA: White blood cell count is 10.7, hemoglobin 14.9, platelet count of 161. Sodium 141, BUN 10, creatinine 0.3. IMAGING: The abdomen and pelvis CT scan was performed and this shows massive distal fecal impaction with associated mass effect on the urinary bladder. There is a hernia in the left flank with herniation of bowel loops, primarily the large bowel; mild splenomegaly. There is a spinal stimulator on the right lower quadrant. There is severe lumbar lordosis. IMPRESSION: This is a 37-year-old female with history of cerebral palsy, bedbound with muscular dystonia, admitted to the hospital with a fecal impaction and urinary tract infection. 1. Fecal impaction. 2. Urinary tract infection. 3. Cerebral palsy. 4. Bedbound status. 5. Muscular dystonia. DISCUSSION: The patient certainly has fecal impaction by imaging, which is likely as a result of her bedbound status and overall muscular dystonia and inability to move. She is going to need to have her fecal impaction cleared by both manual disimpaction and laxative and enema route, and we will go ahead and order for GoLYTELY to be given over a 24-hour period to help move stool as well as enemas and manual disimpaction. RECOMMENDATIONS: 1. A 4 liters of GoLYTELY to be given slowly over 24 hours. 2. A 500 mL tap water enema every 12 hours. 3. Attempt at manual disimpaction. 4. The patient will need a strong bowel regimen going forward, suggest at least twice a day of MiraLax and possibly also Colace or bisacodyl added on to this. 5. Management of the patient's urinary tract infection as per primary. Thank you for allowing me to participate in her care. Please call with any further questions. JOB# [id number]
[2018-06-22] MEDS: Lactulose 10 Gm/15 mL 30mL UDC PO SCH ×2 (09:27→17:08)
[2018-06-22] MEDS: Multivitamin w/ Minerals Tab PO SCH (09:27)
[2018-06-22] MEDS: POLYETHYLENE GLYCOL 3350 17 GM PACK PO SCH ×2 (09:28→17:08)
--- NOTE | 2018-06-22 14:57 | Internal Medicine Prog Note ---
Internal Medicine Subjective - Subjective Patient seen and examined:: with staff, chart reviewed Patient is:: awake, verbal, interactive, in bed, other (laying face down) Patient Complaints of:: congestion, constipation, pain with urination Per staff patient has:: no adverse event, no episodes of fall, poor oral intake , tolerating meds Internal Medicine Objective - Results Result Diagrams: 06/21/18 06:30 06/21/18 06:30 Recent Labs: Laboratory Last Values WBC 10.7 Th/cmm (4.8-10.8) 06/21/18 06:30 RBC 4.91 Mil/cmm (3.80-5.10) 06/21/18 06:30 Hgb 14.9 gm/dL (12-16) 06/21/18 06:30 Hct 45.5 % (41.0-60) 06/21/18 06:30 MCV 92.6 fl (81-100) 06/21/18 06:30 MCH 30.3 pg (27.0-31.0) 06/21/18 06:30 MCHC Differential 32.7 pg (28.0-36.0) 06/21/18 06:30 RDW 14.2 % (11.5-20.0) 06/21/18 06:30 Plt Count 161 Th/cmm (150-400) 06/21/18 06:30 MPV 7.9 fl 06/21/18 06:30 Neutrophils % 59.7 % (40.0-80.0) 06/21/18 06:30 Lymphocytes % 29.7 % (20.0-50.0) 06/21/18 06:30 Monocytes % 8.2 % (2.0-10.0) 06/21/18 06:30 Eosinophils % 1.5 % (0.0-5.0) 06/21/18 06:30 Basophils % 0.9 % (0.0-2.0) 06/21/18 06:30 PT 10.4 SECONDS (9.5-11.5) 06/20/18 13:50 INR 1.00 (0.5-1.4) 06/20/18 13:50 Sodium 141 mEq/L (136-145) 06/21/18 06:30 Potassium 3.5 mEq/L (3.5-5.1) 06/21/18 06:30 Chloride 108 mEq/L (98-107) H 06/21/18 06:30 Carbon Dioxide 22.5 mEq/L (21.0-31.0) 06/21/18 06:30 Anion Gap 14.0 (7.0-16.0) 06/21/18 06:30 BUN 10 mg/dL (7-25) 06/21/18 06:30 Creatinine 0.3 mg/dL (0.6-1.2) L 06/21/18 06:30 Est GFR ( Amer) > 60.0 ml/min (>90) 06/21/18 06:30 Est GFR (Non-Af Amer) > 60.0 ml/min 06/21/18 06:30 BUN/Creatinine Ratio 33.3 06/21/18 06:30 Glucose 72 mg/dL (70-105) D 06/21/18 06:30 POC Glucose 164 MG/DL (70 - 105) H 06/22/18 12:38 Calcium 9.2 mg/dL (8.6-10.3) 06/21/18 06:30 Magnesium 2.0 mg/dL (1.9-2.7) 06/21/18 06:30 Total Bilirubin 0.5 mg/dL (0.3-1.0) 06/20/18 13:50 AST 79 U/L (13-39) H 06/20/18 13:50 ALT 100 U/L (7-52) H 06/20/18 13:50 Alkaline Phosphatase 323 U/L (34-104) H 06/20/18 13:50 Creatine Kinase 17 U/L (30-223) L 06/20/18 13:50 Troponin I 0.02 ng/mL (0.01-0.05) 06/20/18 13:50 B-Natriuretic Peptide 14.5 pg/mL (5.0-100.0) 06/20/18 13:50 Total Protein 6.1 gm/dL (6.0-8.3) 06/20/18 13:50 Albumin 3.5 gm/dL (3.7-5.3) L 06/20/18 13:50 Globulin 2.6 gm/dL 06/20/18 13:50 Albumin/Globulin Ratio 1.4 (1.0-1.8) 06/20/18 13:50 Triglycerides 94 mg/dL (<150) 06/20/18 13:50 Cholesterol 211 mg/dL (<200) H 06/20/18 13:50 LDL Cholesterol Direct 130 mg/dL (75-193) 06/20/18 13:50 HDL Cholesterol 67 mg/dL (23-92) 06/20/18 13:50 Amylase 43 U/L (29-103) 06/20/18 13:50 Lipase 38 U/L (11-82) 06/20/18 13:50 TSH 3.23 uIU/ml (0.34-5.60) 06/21/18 06:30 Serum , Qual NEGATIVE (NEGATIVE) 06/20/18 13:58 Urine Source CLEAN C 06/20/18 15:00 Urine Color YELLOW 06/20/18 15:00 Urine Clarity CLEAR (CLEAR) 06/20/18 15:00 Urine pH 6.5 (4.6 - 8.0) 06/20/18 15:00 Ur Specific [place] 1.015 (1.005-1.030) 06/20/18 15:00 Urine Protein NEGATIVE mg/dL (NEGATIVE) 06/20/18 15:00 Urine Glucose (UA) NEGATIVE mg/dL (NEGATIVE) 06/20/18 15:00 Urine Ketones NEGATIVE mg/dL (NEGATIVE) 06/20/18 15:00 Urine Blood LARGE (NEGATIVE) H 06/20/18 15:00 Urine Nitrate NEGATIVE (NEGATIVE) 06/20/18 15:00 Urine Bilirubin NEGATIVE (NEGATIVE) 06/20/18 15:00 Urine Urobilinogen 0.2 E.U./dL (0.2 - 1.0) 06/20/18 15:00 Ur Leukocyte Esterase LARGE (NEGATIVE) H 06/20/18 15:00 Urine RBC 5-10 /hpf (0-5) H 06/20/18 15:00 Urine WBC 2-5 /hpf (0-5) 06/20/18 15:00 Ur Epithelial Cells FEW /lpf (FEW) 06/20/18 15:00 Urine Bacteria FEW /hpf (NONE SEEN) 06/20/18 15:00 Urine Test NEGATIVE 06/20/18 15:00 - Physical Exam Vitals and I&O: Vital Signs Temp 97.6 F 06/22/18 11:14 Pulse 91 06/22/18 11:14 Resp 18 06/22/18 11:14 BP 128/81 06/22/18 11:14 Pulse Ox 96 06/22/18 11:14 Intake & Output 06/21/18 06/22/18 06/22/18 18:59 06:59 18:59 Intake Total 600 200 Balance 600 200 Weight (lbs) 41.277 kg Intake: Intake, IV Amount 100 200 Piperacillin Sodium/ 100 200 Tazobact 4.5 gm In Sodium Chloride 0.9% 100 ml @ 100 mls/hr IV Q8HR [facility] Rx #:[id number] Oral 500 Other: # Voids 4 # Bowel Movements 2 Stool Characteristics Formed Formed Weight Source Bedscale Active Medications: Current Medications Acetaminophen (Tylenol) 650 mg PO Q4H PRN PRN Reason: Pain Or Fever above 101 Stop: 08/19/18 22:28 Last Admin: 06/21/18 22:15 Dose: 650 mg Acetaminophen/Hydrocodone Bitart ([place] 5mg/325mg) 1 tab PO Q4H PRN PRN Reason: Pain (Severe) Stop: 08/19/18 22:28 Al Hydrox/Mg Hydrox/Simethicone (Maalox) 30 ml PO Q6H PRN PRN Reason: Dyspepsia Stop: 08/19/18 22:28 Ascorbic Acid (Vitamin C) 500 mg PO DAILY [facility] Stop: 08/21/18 08:59 Last Admin: 06/22/18 09:27 Dose: 500 mg Baclofen (Lioresal) 20 mg PO BID [facility] Stop: 08/20/18 16:59 Last Admin: 06/22/18 09:27 Dose: 20 mg Clotrimazole (Lotrimin 1% Cream) 1 appl TP BID PRN PRN Reason: Psoriasis or Fungal Infection Stop: 08/19/18 22:23 Diphenhydramine HCl (Benadryl) 25 mg PO Q12H PRN PRN Reason: ITCHING Stop: 08/20/18 10:29 Guaifenesin (Robitussin) 200 mg PO Q4HR PRN PRN Reason: Cough or Congestion Stop: 08/19/18 22:28 Piperacillin Sod/Tazobactam (Sod 4.5 gm/ Sodium Chloride) 100 mls @ 100 mls/hr IV Q8HR [facility] Stop: 08/20/18 04:59 Last Admin: 06/22/18 12:48 Dose: 100 mls/hr Insulin Aspart (Novolog) 0 units SUBQ ACHS [facility]; Protocol Stop: 08/20/18 07:29 Last Admin: 06/22/18 12:47 Dose: Not Given Lactulose (Cephulac) 30 gm PO BID [facility] Stop: 08/20/18 16:59 Last Admin: 06/22/18 09:27 Dose: 30 gm Magnesium Hydroxide (Milk Of Magnesia) 30 ml PO Q2D PRN PRN Reason: Constipation Stop: 08/19/18 22:23 Miscellaneous (Budesonide [Budesonide Ec]) 9 mg PO DAILY [facility] Stop: 08/20/18 08:59 Mycophenolate Mofetil (Cellcept) 1,500 mg PO BID [facility] Stop: 08/20/18 16:59 Last Admin: 06/22/18 09:29 Dose: 1,500 mg Ondansetron HCl (Zofran) 4 mg IV Q8H PRN PRN Reason: Nausea / Vomiting Stop: 08/19/18 22:28 [facility]op[facility]ole [facility]) [facility]: 08/20/18 07:29 Last Admin: 06/22/18 07:06 Dose: 40 mg Polyethylene Glycol (Miralax) 17 gm PO BID [facility] Stop: 08/20/18 16:59 Last Admin: 06/22/18 09:28 Dose: 17 gm Pseudoephedrine HCl (Sudafed) 60 mg PO Q6H PRN PRN Reason: CONGESTION Stop: 08/20/18 10:31 Tramadol HCl (Ultram) 50 mg PO Q6HR PRN PRN Reason: Pain (Severe) Stop: 08/19/18 22:23 Last Admin: 06/21/18 06:20 Dose: 50 mg Vitamin D (Vitamin D) 400 iu PO DAILY [facility] Stop: 08/20/18 08:59 Last Admin: 06/22/18 09:27 Dose: 400 iu General: alert HEENT: NC/AT, PERRLA Neck: Supple, No JVD Lungs: rales, ronchi, chest deformity present Cardiovascular: RRR, Normal S1, Normal S2 Abdomen: soft, non-tender, globular Extremities: excoriation, contracture, deformity Neurological: no change Internal Medicine Assmt/Plan - Assessment Assessment: ASSESSMENT: Abdominal pain/pelvic pain, sever impaction,urinary tract infection , extended-spectrum beta-lactamase Escherichia coli, cerebral palsy, hypertension, and functional quadriplegia. - Plan Plan: PLAN: We will continue the patient on IV antibiotic, currently on IV Zosyn. We will review the patient's CT abdomen and pelvis and depending on results we may refer the patient to GI. We will continue to monitor the patient's liver function test. Continue with current care with followup consult and recommendations. Nutritional Asmnt/Malnutr-PDOC - Dietary Evaluation Malnutrition Findings (Please click <Entered> for more info): Nutritional Asmnt/Malnutrition Start: 06/21/18 09: 34 Text: Status: Complete Freq: Protocol: Document 06/21/18 10:[address] [facility] (Rec: 06/21/18 10:30 [email or web address]) Nutritional Asmnt/Malnutrition Patient General Information Nutritional Screening High Risk Consult Diagnosis UTI&abd pain Pertinent Medical Hx/Surgical Hx HTN, DM, dystonia, hypatitis c , CP Subjective Information Consult received for blood sugar 238 at admission. Pt seen lying prone in bed at time of visit, family at bedside. Pt stated she has good appetite, no food preferece. Current Diet Order/ Nutrition Support regular Pertinent Medications novolog, protonix, piperacillin, vit D Pertinent Labs 06/21 Cl 108, cr 0.3, glucose 72, Ca 9.2, Mg 2.0 06/20 Cl 104, Cr 0.5, glucose 238, Ca 9.0 Nutritional Hx/Data Height 1.55 m Height (Calculated Centimeters) 154.9 Current Weight (lbs) 40.823 kg Weight (Calculated Kilograms) 40.8 Weight (Calculated Grams) 67574.3 [place] Body Weight 105 Body Mass Index (BMI) 16.9 Weight Status Underweight GI Symptoms GI Symptoms None Last BM not indicated Difficult in: None Skin Integrity/Comment: pressure area to right lower abd, R/L foot, scar to left lower back and left buttocks [place] Estimated Nutritional Goals BEE in Kcals: Using Current wt Calories/Kcals/Kg 30-35 Kcals Calculated 9585-3030 Protein: Using Current wt Protein g/k.2-1.4 Protein Calculated 49-57 Fluid: ml 1230-1435ml (1ml/kcal) Nutritional Problem 1. Problem Problem altered nutrition related labs Etiology hx of DM, endocrine dysfunction Signs/Symptoms: BS 238 at admission Intervention/Recommendation Comments 1. Continue with regular diet as ordered. Consider offer nutrition supplements if PO not meeting nutritional needs d/t pt is underweight. 2. Consider CCHO diet if glucose continue elevated. 3. Monitor PO intake, wt, labs and skin integrity 4. F/U as moderate risk in 3-5 days, 06/24-06/26 Expected Outcomes/Goals Expected Outcomes/Goals 1. PO intake to meet at least 75% of nutritional needs. 2. Wt stability, skin to remain intact, labs to approach WNL.
[2018-06-23 05:58] LABS: % EOSINOPHILS 3.2 % (0.0-5.0); % LYMPHOCYTES 18.2 % (20.0-50.0); % MONOCYTES 6.1 % (2.0-10.0); % NEUTROPHILS 71.5 % (40.0-80.0); BASOPHILE ABSOLUTE 0.1 Th/cumm (0-0.2); EOSINOPHILE ABSOLUTE 0.3 Th/cmm (0.1-0.4); HEMATOCRIT 41.2 % (41.0-60); MEAN CORPUSCULAR HEMOGLOBIN 31.3 pg (27.0-31.0); MEAN PLATELET VOLUME 7.7 fl; MONOCYTE ABSOLUTE 0.7 Th/cmm (0.3-1.0); NEUTROPHILE ABSOLUTE 7.7 Th/cmm (1.8-8.0); PLATELET COUNT 128 Th/cmm (150-400); RED BLOOD COUNT 4.48 Mil/cmm (3.80-5.10); RED CELL DISTRIBUTION WIDTH 13.7 % (11.5-20.0); WHITE BLOOD COUNT 10.8 Th/cmm (4.8-10.8)
[2018-06-23] MEDS: Pantoprazole 40 mg EC Tab PO SCH ×2 (07:09→17:10)
[2018-06-23 07:13] LABS: ALB/GLOB RATIO 1.4 (1.0-1.8); ALBUMIN 3.3 gm/dL (3.7-5.3); ALKALINE PHOSPHATASE 291 U/L (34-104); ANION GAP 13.2 (7.0-16.0); BILIRUBIN,TOTAL 1.3 mg/dL (0.3-1.0); BUN - UREA NITROGEN 8 mg/dL (7-25); CALCIUM SERUM 8.8 mg/dL (8.6-10.3); CARBON DIOXIDE 24.3 mEq/L (21.0-31.0); CHLORIDE 106 mEq/L (98-107); CREATININE - SERUM 0.3 mg/dL (0.6-1.2); GFR AFRICAN-AMERICAN > 60.0 ml/min (>90); GFR NON AFRICAN-AMERICAN > 60.0 ml/min; GLUCOSE 84 mg/dL (70-105); POTASSIUM SERUM 3.5 mEq/L (3.5-5.1); SGOT 61 U/L (13-39); SGPT/ALT 79 U/L (7-52); SODIUM SERUM 140 mEq/L (136-145); TOTAL PROTEIN,SERUM 5.6 gm/dL (6.0-8.3)
[2018-06-23] MEDS: INSULIN ASPART, RECOMBINANT 100 UNITS/ML SUBQ SCH ×4 (07:39→20:23)
--- NOTE | 2018-06-23 07:49 | GI Progress Note ---
Subjective - Review of Systems Service Date: 06/23/18 Subjective: No abd pain. had multiple BMs with prep yesterday Objective - Results Result Diagrams: 06/23/18 05:45 06/23/18 05:45 Recent Labs: Laboratory Last Values WBC 10.8 Th/cmm (4.8-10.8) 06/23/18 05:45 RBC 4.48 Mil/cmm (3.80-5.10) 06/23/18 05:45 Hgb 14.0 gm/dL (12-16) 06/23/18 05:45 Hct 41.2 % (41.0-60) 06/23/18 05:45 MCV 92.0 fl (81-100) 06/23/18 05:45 MCH 31.3 pg (27.0-31.0) H 06/23/18 05:45 MCHC Differential 34.0 pg (28.0-36.0) 06/23/18 05:45 RDW 13.7 % (11.5-20.0) 06/23/18 05:45 Plt Count 128 Th/cmm (150-400) L 06/23/18 05:45 MPV 7.7 fl 06/23/18 05:45 Neutrophils % 71.5 % (40.0-80.0) 06/23/18 05:45 Lymphocytes % 18.2 % (20.0-50.0) L 06/23/18 05:45 Monocytes % 6.1 % (2.0-10.0) 06/23/18 05:45 Eosinophils % 3.2 % (0.0-5.0) 06/23/18 05:45 Basophils % 1.0 % (0.0-2.0) 06/23/18 05:45 PT 10.4 SECONDS (9.5-11.5) 06/20/18 13:50 INR 1.00 (0.5-1.4) 06/20/18 13:50 Sodium 140 mEq/L (136-145) 06/23/18 05:45 Potassium 3.5 mEq/L (3.5-5.1) 06/23/18 05:45 Chloride 106 mEq/L (98-107) 06/23/18 05:45 Carbon Dioxide 24.3 mEq/L (21.0-31.0) 06/23/18 05:45 Anion Gap 13.2 (7.0-16.0) 06/23/18 05:45 BUN 8 mg/dL (7-25) 06/23/18 05:45 Creatinine 0.3 mg/dL (0.6-1.2) L 06/23/18 05:45 Est GFR ( Amer) > 60.0 ml/min (>90) 06/23/18 05:45 Est GFR (Non-Af Amer) > 60.0 ml/min 06/23/18 05:45 BUN/Creatinine Ratio 26.7 06/23/18 05:45 Glucose 84 mg/dL (70-105) 06/23/18 05:45 POC Glucose 78 MG/DL (70 - 105) 06/23/18 07:11 Calcium 8.8 mg/dL (8.6-10.3) 06/23/18 05:45 Magnesium 2.0 mg/dL (1.9-2.7) 06/21/18 06:30 Total Bilirubin 1.3 mg/dL (0.3-1.0) H 06/23/18 05:45 AST 61 U/L (13-39) H 06/23/18 05:45 ALT 79 U/L (7-52) H 06/23/18 05:45 Alkaline Phosphatase 291 U/L (34-104) H 06/23/18 05:45 Creatine Kinase 17 U/L (30-223) L 06/20/18 13:50 Troponin I 0.02 ng/mL (0.01-0.05) 06/20/18 13:50 B-Natriuretic Peptide 14.5 pg/mL (5.0-100.0) 06/20/18 13:50 Total Protein 5.6 gm/dL (6.0-8.3) L 06/23/18 05:45 Albumin 3.3 gm/dL (3.7-5.3) L 06/23/18 05:45 Globulin 2.3 gm/dL 06/23/18 05:45 Albumin/Globulin Ratio 1.4 (1.0-1.8) 06/23/18 05:45 Triglycerides 94 mg/dL (<150) 06/20/18 13:50 Cholesterol 211 mg/dL (<200) H 06/20/18 13:50 LDL Cholesterol Direct 130 mg/dL (75-193) 06/20/18 13:50 HDL Cholesterol 67 mg/dL (23-92) 06/20/18 13:50 Amylase 43 U/L (29-103) 06/20/18 13:50 Lipase 38 U/L (11-82) 06/20/18 13:50 TSH 3.23 uIU/ml (0.34-5.60) 06/21/18 06:30 Serum , Qual NEGATIVE (NEGATIVE) 06/20/18 13:58 Urine Source CLEAN C 06/20/18 15:00 Urine Color YELLOW 06/20/18 15:00 Urine Clarity CLEAR (CLEAR) 06/20/18 15:00 Urine pH 6.5 (4.6 - 8.0) 06/20/18 15:00 Ur Specific [place] 1.015 (1.005-1.030) 06/20/18 15:00 Urine Protein NEGATIVE mg/dL (NEGATIVE) 06/20/18 15:00 Urine Glucose (UA) NEGATIVE mg/dL (NEGATIVE) 06/20/18 15:00 Urine Ketones NEGATIVE mg/dL (NEGATIVE) 06/20/18 15:00 Urine Blood LARGE (NEGATIVE) H 06/20/18 15:00 Urine Nitrate NEGATIVE (NEGATIVE) 06/20/18 15:00 Urine Bilirubin NEGATIVE (NEGATIVE) 06/20/18 15:00 Urine Urobilinogen 0.2 E.U./dL (0.2 - 1.0) 06/20/18 15:00 Ur Leukocyte Esterase LARGE (NEGATIVE) H 06/20/18 15:00 Urine RBC 5-10 /hpf (0-5) H 06/20/18 15:00 Urine WBC 2-5 /hpf (0-5) 06/20/18 15:00 Ur Epithelial Cells FEW /lpf (FEW) 06/20/18 15:00 Urine Bacteria FEW /hpf (NONE SEEN) 06/20/18 15:00 Urine Test NEGATIVE 06/20/18 15:00 - Physical Exam Vitals and I&O: Vital Signs Temp 97.6 F 06/23/18 04:00 Pulse 83 06/23/18 04:00 Resp 17 06/23/18 04:00 BP 127/86 06/23/18 04:00 Pulse Ox 97 06/23/18 04:00 Intake & Output 06/22/18 06/23/18 06/23/18 18:59 06:59 18:59 Intake Total 600 800 Output Total 3 Balance 597 800 Weight (lbs) 41.277 kg 40.965 kg Intake: Intake, IV Amount 100 200 Piperacillin Sodium/ 100 200 Tazobact 4.5 gm In Sodium Chloride 0.9% 100 ml @ 100 mls/hr IV Q8HR [facility] Rx #:[id number] Oral 500 600 Output: Urine 3 Other: # Voids 4 4 # Bowel Movements 3 3 Stool Characteristics Formed Formed Weight Source Bedscale Bedscale Active Medications: Current Medications Acetaminophen (Tylenol) 650 mg PO Q4H PRN PRN Reason: Pain Or Fever above 101 Stop: 08/19/18 22:28 Last Admin: 06/21/18 22:15 Dose: 650 mg Acetaminophen/Hydrocodone Bitart ([place] 5mg/325mg) 1 tab PO Q4H PRN PRN Reason: Pain (Severe) Stop: 08/19/18 22:28 Al Hydrox/Mg Hydrox/Simethicone (Maalox) 30 ml PO Q6H PRN PRN Reason: Dyspepsia Stop: 08/19/18 22:28 Ascorbic Acid (Vitamin C) 500 mg PO DAILY [facility] Stop: 08/21/18 08:59 Last Admin: 06/22/18 09:27 Dose: 500 mg Baclofen (Lioresal) 20 mg PO BID [facility] Stop: 08/20/18 16:59 Last Admin: 06/22/18 17:08 Dose: 20 mg Clotrimazole (Lotrimin 1% Cream) 1 appl TP BID PRN PRN Reason: Psoriasis or Fungal Infection Stop: 08/19/18 22:23 Diphenhydramine HCl (Benadryl) 25 mg PO Q12H PRN PRN Reason: ITCHING Stop: 08/20/18 10:29 Guaifenesin (Robitussin) 200 mg PO Q4HR PRN PRN Reason: Cough or Congestion Stop: 08/19/18 22:28 Piperacillin Sod/Tazobactam (Sod 4.5 gm/ Sodium Chloride) 100 mls @ 100 mls/hr IV Q8HR [facility] Stop: 08/20/18 04:59 Last Infusion: 11/24/18 05:39 Dose: Infused Insulin Aspart (Novolog) 0 units SUBQ ACHS [facility]; Protocol Stop: 08/20/18 07:29 Last Admin: 06/23/18 07:39 Dose: Not Given Lactulose (Cephulac) 30 gm PO BID [facility] Stop: 08/20/18 16:59 Last Admin: 06/22/18 17:08 Dose: 30 gm Magnesium Hydroxide (Milk Of Magnesia) 30 ml PO Q2D PRN PRN Reason: Constipation Stop: 08/19/18 22:23 Miscellaneous (Budesonide [Budesonide Ec]) 9 mg PO DAILY [facility] Stop: 08/20/18 08:59 Mycophenolate Mofetil (Cellcept) 1,500 mg PO BID [facility] Stop: 08/20/18 16:59 Last Admin: 06/22/18 17:54 Dose: 1,500 mg Ondansetron HCl (Zofran) 4 mg IV Q8H PRN PRN Reason: Nausea / Vomiting Stop: 08/19/18 22:28 [facility]op[facility]ole [facility]) [facility] Stop: 08/20/18 07:29 Last Admin: 06/23/18 07:09 Dose: 40 mg Polyethylene Glycol (Miralax) 17 gm PO BID [facility] Stop: 08/20/18 16:59 Last Admin: 06/22/18 17:08 Dose: 17 gm Pseudoephedrine HCl (Sudafed) 60 mg PO Q6H PRN PRN Reason: CONGESTION Stop: 08/20/18 10:31 Tramadol HCl (Ultram) 50 mg PO Q6HR PRN PRN Reason: Pain (Severe) Stop: 08/19/18 22:23 Last Admin: 06/23/18 02:46 Dose: 50 mg Vitamin D (Vitamin D) 400 iu PO DAILY [facility] Stop: 08/20/18 08:59 Last Admin: 06/22/18 09:27 Dose: 400 iu General: Alert HEENT: Atraumatic Neck: Supple Cardiovascular: Regular rate Abdomen: Bowel sounds, Soft, no Tender, no Hepatomegaly, no Splenomegaly, no Distended, no Rebound, no Mass, no Guarding Skin: no Rash Assessment/Plan - Assessment Assessment: # Cerebral palsy # Fecal impaction # Abd pain Initial CT scan showed fecal impaction, and pt has now had several BMs with golytely prep and tap water enemas. Plan: - start miralax bid to prevent recurrence - tap water enema as needed - KUB - diet as tolerated Stable from a GI perspective.
[2018-06-23] MEDS: Lactulose 10 Gm/15 mL 30mL UDC PO SCH ×2 (08:47→17:10)
[2018-06-23] MEDS: POLYETHYLENE GLYCOL 3350 17 GM PACK PO SCH ×2 (08:47→17:10)
[2018-06-23] MEDS: Multivitamin w/ Minerals Tab PO SCH (08:48)
--- NOTE | 2018-06-23 09:27 | Diagnostic Imaging Report ---
Exam: KUB of the abdomen. HISTORY: Constipation. Findings: 2 views of the abdomen reviewed. The study demonstrates a distention of the colon with air with fecal impaction the rectum. Bony structures are unremarkable for deformity of the pelvis. Delayed metallic device is noted in the right lower abdomen. IMPRESSION: mild ileus Fecal impaction the rectum. Deformity of the pelvis.
--- NOTE | 2018-06-23 11:40 | Internal Medicine Prog Note ---
Internal Medicine Subjective - Subjective Patient seen and examined:: with staff, chart reviewed Patient is:: awake, verbal, interactive, in bed, other (laying face down) Patient Complaints of:: congestion, constipation, pain with urination Per staff patient has:: no adverse event, no episodes of fall, poor oral intake , tolerating meds Internal Medicine Objective - Results Result Diagrams: 06/23/18 05:45 06/23/18 05:45 Recent Labs: Laboratory Last Values WBC 10.8 Th/cmm (4.8-10.8) 06/23/18 05:45 RBC 4.48 Mil/cmm (3.80-5.10) 06/23/18 05:45 Hgb 14.0 gm/dL (12-16) 06/23/18 05:45 Hct 41.2 % (41.0-60) 06/23/18 05:45 MCV 92.0 fl (81-100) 06/23/18 05:45 MCH 31.3 pg (27.0-31.0) H 06/23/18 05:45 MCHC Differential 34.0 pg (28.0-36.0) 06/23/18 05:45 RDW 13.7 % (11.5-20.0) 06/23/18 05:45 Plt Count 128 Th/cmm (150-400) L 06/23/18 05:45 MPV 7.7 fl 06/23/18 05:45 Neutrophils % 71.5 % (40.0-80.0) 06/23/18 05:45 Lymphocytes % 18.2 % (20.0-50.0) L 06/23/18 05:45 Monocytes % 6.1 % (2.0-10.0) 06/23/18 05:45 Eosinophils % 3.2 % (0.0-5.0) 06/23/18 05:45 Basophils % 1.0 % (0.0-2.0) 06/23/18 05:45 PT 10.4 SECONDS (9.5-11.5) 06/20/18 13:50 INR 1.00 (0.5-1.4) 06/20/18 13:50 Sodium 140 mEq/L (136-145) 06/23/18 05:45 Potassium 3.5 mEq/L (3.5-5.1) 06/23/18 05:45 Chloride 106 mEq/L (98-107) 06/23/18 05:45 Carbon Dioxide 24.3 mEq/L (21.0-31.0) 06/23/18 05:45 Anion Gap 13.2 (7.0-16.0) 06/23/18 05:45 BUN 8 mg/dL (7-25) 06/23/18 05:45 Creatinine 0.3 mg/dL (0.6-1.2) L 06/23/18 05:45 Est GFR ( Amer) > 60.0 ml/min (>90) 06/23/18 05:45 Est GFR (Non-Af Amer) > 60.0 ml/min 06/23/18 05:45 BUN/Creatinine Ratio 26.7 06/23/18 05:45 Glucose 84 mg/dL (70-105) 06/23/18 05:45 POC Glucose 78 MG/DL (70 - 105) 06/23/18 07:11 Calcium 8.8 mg/dL (8.6-10.3) 06/23/18 05:45 Magnesium 2.0 mg/dL (1.9-2.7) 06/21/18 06:30 Total Bilirubin 1.3 mg/dL (0.3-1.0) H 06/23/18 05:45 AST 61 U/L (13-39) H 06/23/18 05:45 ALT 79 U/L (7-52) H 06/23/18 05:45 Alkaline Phosphatase 291 U/L (34-104) H 06/23/18 05:45 Creatine Kinase 17 U/L (30-223) L 06/20/18 13:50 Troponin I 0.02 ng/mL (0.01-0.05) 06/20/18 13:50 B-Natriuretic Peptide 14.5 pg/mL (5.0-100.0) 06/20/18 13:50 Total Protein 5.6 gm/dL (6.0-8.3) L 06/23/18 05:45 Albumin 3.3 gm/dL (3.7-5.3) L 06/23/18 05:45 Globulin 2.3 gm/dL 06/23/18 05:45 Albumin/Globulin Ratio 1.4 (1.0-1.8) 06/23/18 05:45 Triglycerides 94 mg/dL (<150) 06/20/18 13:50 Cholesterol 211 mg/dL (<200) H 06/20/18 13:50 LDL Cholesterol Direct 130 mg/dL (75-193) 06/20/18 13:50 HDL Cholesterol 67 mg/dL (23-92) 06/20/18 13:50 Amylase 43 U/L (29-103) 06/20/18 13:50 Lipase 38 U/L (11-82) 06/20/18 13:50 TSH 3.23 uIU/ml (0.34-5.60) 06/21/18 06:30 Serum , Qual NEGATIVE (NEGATIVE) 06/20/18 13:58 Urine Source CLEAN C 06/20/18 15:00 Urine Color YELLOW 06/20/18 15:00 Urine Clarity CLEAR (CLEAR) 06/20/18 15:00 Urine pH 6.5 (4.6 - 8.0) 06/20/18 15:00 Ur Specific [place] 1.015 (1.005-1.030) 06/20/18 15:00 Urine Protein NEGATIVE mg/dL (NEGATIVE) 06/20/18 15:00 Urine Glucose (UA) NEGATIVE mg/dL (NEGATIVE) 06/20/18 15:00 Urine Ketones NEGATIVE mg/dL (NEGATIVE) 06/20/18 15:00 Urine Blood LARGE (NEGATIVE) H 06/20/18 15:00 Urine Nitrate NEGATIVE (NEGATIVE) 06/20/18 15:00 Urine Bilirubin NEGATIVE (NEGATIVE) 06/20/18 15:00 Urine Urobilinogen 0.2 E.U./dL (0.2 - 1.0) 06/20/18 15:00 Ur Leukocyte Esterase LARGE (NEGATIVE) H 06/20/18 15:00 Urine RBC 5-10 /hpf (0-5) H 06/20/18 15:00 Urine WBC 2-5 /hpf (0-5) 06/20/18 15:00 Ur Epithelial Cells FEW /lpf (FEW) 06/20/18 15:00 Urine Bacteria FEW /hpf (NONE SEEN) 06/20/18 15:00 Urine Test NEGATIVE 06/20/18 15:00 - Physical Exam Vitals and I&O: Vital Signs Temp 97.0 F 06/23/18 08:00 Pulse 83 06/23/18 08:00 Resp 18 06/23/18 08:00 BP 141/93 06/23/18 08:00 Pulse Ox 94 06/23/18 08:00 Intake & Output 06/22/18 06/23/18 06/23/18 18:59 06:59 18:59 Intake Total 600 800 Output Total 3 Balance 597 800 Weight (lbs) 41.277 kg 40.965 kg Intake: Intake, IV Amount 100 200 Piperacillin Sodium/ 100 200 Tazobact 4.5 gm In Sodium Chloride 0.9% 100 ml @ 100 mls/hr IV Q8HR [facility] Rx #:[id number] Oral 500 600 Output: Urine 3 Other: # Voids 4 4 # Bowel Movements 3 3 Stool Characteristics Formed Formed Weight Source Bedscale Bedscale Active Medications: Current Medications Acetaminophen (Tylenol) 650 mg PO Q4H PRN PRN Reason: Pain Or Fever above 101 Stop: 08/19/18 22:28 Last Admin: 06/21/18 22:15 Dose: 650 mg Acetaminophen/Hydrocodone Bitart ([place] 5mg/325mg) 1 tab PO Q4H PRN PRN Reason: Pain (Severe) Stop: 08/19/18 22:28 Al Hydrox/Mg Hydrox/Simethicone (Maalox) 30 ml PO Q6H PRN PRN Reason: Dyspepsia Stop: 08/19/18 22:28 Ascorbic Acid (Vitamin C) 500 mg PO DAILY [facility] Stop: 08/21/18 08:59 Last Admin: 06/23/18 08:48 Dose: 500 mg Baclofen (Lioresal) 20 mg PO BID [facility] Stop: 08/20/18 16:59 Last Admin: 06/23/18 08:48 Dose: 20 mg Clotrimazole (Lotrimin 1% Cream) 1 appl TP BID PRN PRN Reason: Psoriasis or Fungal Infection Stop: 08/19/18 22:23 Diphenhydramine HCl (Benadryl) 25 mg PO Q12H PRN PRN Reason: ITCHING Stop: 08/20/18 10:29 Guaifenesin (Robitussin) 200 mg PO Q4HR PRN PRN Reason: Cough or Congestion Stop: 08/19/18 22:28 Piperacillin Sod/Tazobactam (Sod 4.5 gm/ Sodium Chloride) 100 mls @ 100 mls/hr IV Q8HR [facility] Stop: 08/20/18 04:59 Last Infusion: 06/23/18 05:39 Dose: Infused Insulin Aspart (Novolog) 0 units SUBQ ACHS [facility]; Protocol Stop: 08/20/18 07:29 Last Admin: 06/23/18 07:39 Dose: Not Given Lactulose (Cephulac) 30 gm PO BID [facility] Stop: 08/20/18 16:59 Last Admin: 06/23/18 08:47 Dose: 30 gm Magnesium Hydroxide (Milk Of Magnesia) 30 ml PO Q2D PRN PRN Reason: Constipation Stop: 08/19/18 22:23 Miscellaneous (Budesonide [Budesonide Ec]) 9 mg PO DAILY [facility] Stop: 08/20/18 08:59 Mycophenolate Mofetil (Cellcept) 1,500 mg PO BID [facility] Stop: 08/20/18 16:59 Last Admin: 06/23/18 08:47 Dose: 1,500 mg Ondansetron HCl (Zofran) 4 mg IV Q8H PRN PRN Reason: Nausea / Vomiting Stop: 08/19/18 22:28 [facility]ole [facility] Stop: 08/20/18 07:29 Last Admin: 06/23/18 07:09 Dose: 40 mg Polyethylene Glycol (Miralax) 17 gm PO BID [facility] Stop: 08/20/18 16:59 Last Admin: 06/23/18 08:47 Dose: 17 gm Pseudoephedrine HCl (Sudafed) 60 mg PO Q6H PRN PRN Reason: CONGESTION Stop: 08/20/18 10:31 Tramadol HCl (Ultram) 50 mg PO Q6HR PRN PRN Reason: Pain (Severe) Stop: 08/19/18 22:23 Last Admin: 06/23/18 02:46 Dose: 50 mg Vitamin D (Vitamin D) 400 iu PO DAILY [facility] Stop: 08/20/18 08:59 Last Admin: 06/23/18 08:48 Dose: 400 iu General: alert HEENT: NC/AT, PERRLA Neck: Supple, No JVD Lungs: rales, ronchi, chest deformity present Cardiovascular: RRR, Normal S1, Normal S2 Abdomen: soft, non-tender, globular Extremities: excoriation, contracture, deformity Neurological: no change Internal Medicine Assmt/Plan - Assessment Assessment: ASSESSMENT: Abdominal pain/pelvic pain, sever impaction,urinary tract infection , extended-spectrum beta-lactamase Escherichia coli, cerebral palsy, hypertension, and functional quadriplegia. - Plan Plan: PLAN: We will continue the patient on IV antibiotic, currently on IV Zosyn. We will review the patient's CT abdomen and pelvis and depending on results we may refer the patient to GI. We will continue to monitor the patient's liver function test. Continue with current care with followup consult and recommendations. Nutritional Asmnt/Malnutr-PDOC - Dietary Evaluation Malnutrition Findings (Please click <Entered> for more info): Nutritional Asmnt/Malnutrition Start: 06/21/18 09: 34 Text: Status: Complete Freq: Protocol: Document 06/21/18 10:12 [facility] (Rec: 06/21/18 10:30 [email or web address] [email or web address]) Nutritional Asmnt/Malnutrition Patient General Information Nutritional Screening High Risk Consult Diagnosis UTI&abd pain Pertinent Medical Hx/Surgical Hx HTN, DM, dystonia, hypatitis c , CP Subjective Information Consult received for blood sugar 238 at admission. Pt seen lying prone in bed at time of visit, family at bedside. Pt stated she has good appetite, no food preferece. Current Diet Order/ Nutrition Support regular Pertinent Medications novolog, protonix, piperacillin, vit D Pertinent Labs 06/21 Cl 108, cr 0.3, glucose 72, Ca 9.2, Mg 2.0 06/20 Cl 104, Cr 0.5, glucose 238, Ca 9.0 Nutritional Hx/Data Height 1.55 m Height (Calculated Centimeters) 154.9 Current Weight (lbs) 40.823 kg Weight (Calculated Kilograms) 40.8 Weight (Calculated Grams) 76816.3 [place] Body Weight 105 Body Mass Index (BMI) 16.9 Weight Status Underweight GI Symptoms GI Symptoms None Last BM not indicated Difficult in: None Skin Integrity/Comment: pressure area to right lower abd, R/L foot, scar to left lower back and left buttocks [place] 13 Estimated Nutritional Goals BEE in Kcals: Using Current wt Calories/Kcals/Kg 30-35 Kcals Calculated 5303-3507 Protein: Using Current wt Protein g/k.2-1.4 Protein Calculated 49-57 Fluid: ml 1230-1435ml (1ml/kcal) Nutritional Problem 1. Problem Problem altered nutrition related labs Etiology hx of DM, endocrine dysfunction Signs/Symptoms: BS 238 at admission Intervention/Recommendation Comments 1. Continue with regular diet as ordered. Consider offer nutrition supplements if PO not meeting nutritional needs d/t pt is underweight. 2. Consider CCHO diet if glucose continue elevated. 3. Monitor PO intake, wt, labs and skin integrity 4. F/U as moderate risk in 3-5 days, 06/24-06/26 Expected Outcomes/Goals Expected Outcomes/Goals 1. PO intake to meet at least 75% of nutritional needs. 2. Wt stability, skin to remain intact, labs to approach WNL.
[2018-06-24] MEDS: Pantoprazole 40 mg EC Tab PO SCH ×2 (06:31→16:43)
[2018-06-24] MEDS: INSULIN ASPART, RECOMBINANT 100 UNITS/ML SUBQ SCH ×4 (06:32→20:51)
--- NOTE | 2018-06-24 08:28 | GI Progress Note ---
Subjective - Review of Systems Service Date: 06/24/18 Subjective: Still having multiple BMs overnight Objective - Results Result Diagrams: 06/23/18 05:45 06/23/18 05:45 Recent Labs: Laboratory Last Values WBC 10.8 Th/cmm (4.8-10.8) 06/23/18 05:45 RBC 4.48 Mil/cmm (3.80-5.10) 06/23/18 05:45 Hgb 14.0 gm/dL (12-16) 06/23/18 05:45 Hct 41.2 % (41.0-60) 06/23/18 05:45 MCV 92.0 fl (81-100) 06/23/18 05:45 MCH 31.3 pg (27.0-31.0) H 06/23/18 05:45 MCHC Differential 34.0 pg (28.0-36.0) 06/23/18 05:45 RDW 13.7 % (11.5-20.0) 06/23/18 05:45 Plt Count 128 Th/cmm (150-400) L 06/23/18 05:45 MPV 7.7 fl 06/23/18 05:45 Neutrophils % 71.5 % (40.0-80.0) 06/23/18 05:45 Lymphocytes % 18.2 % (20.0-50.0) L 06/23/18 05:45 Monocytes % 6.1 % (2.0-10.0) 06/23/18 05:45 Eosinophils % 3.2 % (0.0-5.0) 06/23/18 05:45 Basophils % 1.0 % (0.0-2.0) 06/23/18 05:45 PT 10.4 SECONDS (9.5-11.5) 06/20/18 13:50 INR 1.00 (0.5-1.4) 06/20/18 13:50 Sodium 140 mEq/L (136-145) 06/23/18 05:45 Potassium 3.5 mEq/L (3.5-5.1) 06/23/18 05:45 Chloride 106 mEq/L (98-107) 06/23/18 05:45 Carbon Dioxide 24.3 mEq/L (21.0-31.0) 06/23/18 05:45 Anion Gap 13.2 (7.0-16.0) 06/23/18 05:45 BUN 8 mg/dL (7-25) 06/23/18 05:45 Creatinine 0.3 mg/dL (0.6-1.2) L 06/23/18 05:45 Est GFR ( Amer) > 60.0 ml/min (>90) 06/23/18 05:45 Est GFR (Non-Af Amer) > 60.0 ml/min 06/23/18 05:45 BUN/Creatinine Ratio 26.7 06/23/18 05:45 Glucose 84 mg/dL (70-105) 06/23/18 05:45 POC Glucose 77 MG/DL (70 - 105) 06/24/18 05:55 Calcium 8.8 mg/dL (8.6-10.3) 06/23/18 05:45 Magnesium 2.0 mg/dL (1.9-2.7) 06/21/18 06:30 Total Bilirubin 1.3 mg/dL (0.3-1.0) H 06/23/18 05:45 AST 61 U/L (13-39) H 06/23/18 05:45 ALT 79 U/L (7-52) H 06/23/18 05:45 Alkaline Phosphatase 291 U/L (34-104) H 06/23/18 05:45 Creatine Kinase 17 U/L (30-223) L 06/20/18 13:50 Troponin I 0.02 ng/mL (0.01-0.05) 06/20/18 13:50 B-Natriuretic Peptide 14.5 pg/mL (5.0-100.0) 06/20/18 13:50 Total Protein 5.6 gm/dL (6.0-8.3) L 06/23/18 05:45 Albumin 3.3 gm/dL (3.7-5.3) L 06/23/18 05:45 Globulin 2.3 gm/dL 06/23/18 05:45 Albumin/Globulin Ratio 1.4 (1.0-1.8) 06/23/18 05:45 Triglycerides 94 mg/dL (<150) 06/20/18 13:50 Cholesterol 211 mg/dL (<200) H 06/20/18 13:50 LDL Cholesterol Direct 130 mg/dL (75-193) 06/20/18 13:50 HDL Cholesterol 67 mg/dL (23-92) 06/20/18 13:50 Amylase 43 U/L (29-103) 06/20/18 13:50 Lipase 38 U/L (11-82) 06/20/18 13:50 TSH 3.23 uIU/ml (0.34-5.60) 06/21/18 06:30 Serum , Qual NEGATIVE (NEGATIVE) 06/20/18 13:58 Urine Source CLEAN C 06/20/18 15:00 Urine Color YELLOW 06/20/18 15:00 Urine Clarity CLEAR (CLEAR) 06/20/18 15:00 Urine pH 6.5 (4.6 - 8.0) 06/20/18 15:00 Ur Specific [place] 1.015 (1.005-1.030) 06/20/18 15:00 Urine Protein NEGATIVE mg/dL (NEGATIVE) 06/20/18 15:00 Urine Glucose (UA) NEGATIVE mg/dL (NEGATIVE) 06/20/18 15:00 Urine Ketones NEGATIVE mg/dL (NEGATIVE) 06/20/18 15:00 Urine Blood LARGE (NEGATIVE) H 06/20/18 15:00 Urine Nitrate NEGATIVE (NEGATIVE) 06/20/18 15:00 Urine Bilirubin NEGATIVE (NEGATIVE) 06/20/18 15:00 Urine Urobilinogen 0.2 E.U./dL (0.2 - 1.0) 06/20/18 15:00 Ur Leukocyte Esterase LARGE (NEGATIVE) H 06/20/18 15:00 Urine RBC 5-10 /hpf (0-5) H 06/20/18 15:00 Urine WBC 2-5 /hpf (0-5) 06/20/18 15:00 Ur Epithelial Cells FEW /lpf (FEW) 06/20/18 15:00 Urine Bacteria FEW /hpf (NONE SEEN) 06/20/18 15:00 Urine Test NEGATIVE 06/20/18 15:00 - Physical Exam Vitals and I&O: Vital Signs Temp 97.0 F 06/24/18 07:45 Pulse 80 06/24/18 07:45 Resp 18 06/24/18 07:45 BP 124/91 06/24/18 07:45 Pulse Ox 95 06/24/18 07:45 Intake & Output 06/23/18 06/24/18 06/24/18 18:59 06:59 18:59 Intake Total 100 320 Balance 100 320 Weight (lbs) 40.959 kg Intake: Intake, IV Amount 100 200 Piperacillin Sodium/ 100 200 Tazobact 4.5 gm In Sodium Chloride 0.9% 100 ml @ 100 mls/hr IV Q8HR [facility] Rx #:[id number] Oral 120 Other: # Voids 3 # Bowel Movements 2 Weight Source Bedscale Active Medications: Current Medications Acetaminophen (Tylenol) 650 mg PO Q4H PRN PRN Reason: Pain Or Fever above 101 Stop: 08/19/18 22:28 Last Admin: 06/21/18 22:15 Dose: 650 mg Acetaminophen/Hydrocodone Bitart ([place] 5mg/325mg) 1 tab PO Q4H PRN PRN Reason: Pain (Severe) Stop: 08/19/18 22:28 Al Hydrox/Mg Hydrox/Simethicone (Maalox) 30 ml PO Q6H PRN PRN Reason: Dyspepsia Stop: 08/19/18 22:28 Ascorbic Acid (Vitamin C) 500 mg PO DAILY [facility] Stop: 08/21/18 08:59 Last Admin: 06/23/18 08:48 Dose: 500 mg Baclofen (Lioresal) 20 mg PO BID [facility] Stop: 08/20/18 16:59 Last Admin: 06/23/18 17:10 Dose: 20 mg Clotrimazole (Lotrimin 1% Cream) 1 appl TP BID PRN PRN Reason: Psoriasis or Fungal Infection Stop: 08/19/18 22:23 Diphenhydramine HCl (Benadryl) 25 mg PO Q12H PRN PRN Reason: ITCHING Stop: 08/20/18 10:29 Guaifenesin (Robitussin) 200 mg PO Q4HR PRN PRN Reason: Cough or Congestion Stop: 08/19/18 22:28 Piperacillin Sod/Tazobactam (Sod 4.5 gm/ Sodium Chloride) 100 mls @ 100 mls/hr IV Q8HR [facility] Stop: 08/20/18 04:59 Last Infusion: 06/24/18 05:56 Dose: Infused Insulin Aspart (Novolog) 0 units SUBQ ACHS [facility]; Protocol Stop: 08/20/18 07:29 Last Admin: 06/24/18 06:32 Dose: Not Given Lactulose (Cephulac) 30 gm PO BID [facility] Stop: 08/20/18 16:59 Last Admin: 06/23/18 17:10 Dose: 30 gm Magnesium Hydroxide (Milk Of Magnesia) 30 ml PO Q2D PRN PRN Reason: Constipation Stop: 08/19/18 22:23 Miscellaneous (Budesonide [Budesonide Ec]) 9 mg PO DAILY [facility] Stop: 08/20/18 08:59 Mycophenolate Mofetil (Cellcept) 1,500 mg PO BID [facility] Stop: 08/20/18 16:59 Last Admin: 06/23/18 17:10 Dose: 1,500 mg Ondansetron HCl (Zofran) 4 mg IV Q8H PRN PRN Reason: Nausea / Vomiting Stop: 08/19/18 22:28 [facility]op[facility] Stop: 08/20/18 07:29 Last Admin: 06/24/18 06:31 Dose: 40 mg Polyethylene Glycol (Miralax) 17 gm PO BID [facility] Stop: 08/20/18 16:59 Last Admin: 06/23/18 17:10 Dose: 17 gm Pseudoephedrine HCl (Sudafed) 60 mg PO Q6H PRN PRN Reason: CONGESTION Stop: 08/20/18 10:31 Tramadol HCl (Ultram) 50 mg PO Q6HR PRN PRN Reason: Pain (Severe) Stop: 08/19/18 22:23 Last Admin: 06/23/18 02:46 Dose: 50 mg Vitamin D (Vitamin D) 400 iu PO DAILY [facility] Stop: 08/20/18 08:59 Last Admin: 06/23/18 08:48 Dose: 400 iu General: Alert HEENT: Atraumatic Neck: Supple Cardiovascular: Regular rate Abdomen: Bowel sounds, Soft, no Tender, no Hepatomegaly, no Splenomegaly, no Distended, no Rebound, no Mass, no Guarding Skin: no Rash Assessment/Plan - Assessment Assessment: # Cerebral palsy # Fecal impaction # Abd pain Initial CT scan showed fecal impaction, and pt has now had several BMs with golytely prep and tap water enemas. KUB 06/23 shows persistant impaction, although pt clinically improved Plan: - cont miralax bid to prevent recurrence - tap water enema as needed. Will get another today - diet as tolerated Stable from a GI perspective.
[2018-06-24] MEDS: Lactulose 10 Gm/15 mL 30mL UDC PO SCH ×2 (08:35→16:43)
[2018-06-24] MEDS: POLYETHYLENE GLYCOL 3350 17 GM PACK PO SCH ×2 (08:35→16:43)
[2018-06-24] MEDS: Multivitamin w/ Minerals Tab PO SCH (08:36)
--- NOTE | 2018-06-24 15:18 | Internal Medicine Prog Note ---
Internal Medicine Subjective - Subjective Patient seen and examined:: with staff, chart reviewed Patient is:: awake, verbal, interactive, in bed, other (laying face down) Patient Complaints of:: congestion, constipation, pain with urination Per staff patient has:: no adverse event, no episodes of fall, poor oral intake , tolerating meds Internal Medicine Objective - Results Result Diagrams: 06/23/18 05:45 06/23/18 05:45 Recent Labs: Laboratory Last Values WBC 10.8 Th/cmm (4.8-10.8) 06/23/18 05:45 RBC 4.48 Mil/cmm (3.80-5.10) 06/23/18 05:45 Hgb 14.0 gm/dL (12-16) 06/23/18 05:45 Hct 41.2 % (41.0-60) 06/23/18 05:45 MCV 92.0 fl (81-100) 06/23/18 05:45 MCH 31.3 pg (27.0-31.0) H 06/23/18 05:45 MCHC Differential 34.0 pg (28.0-36.0) 06/23/18 05:45 RDW 13.7 % (11.5-20.0) 06/23/18 05:45 Plt Count 128 Th/cmm (150-400) L 06/23/18 05:45 MPV 7.7 fl 06/23/18 05:45 Neutrophils % 71.5 % (40.0-80.0) 06/23/18 05:45 Lymphocytes % 18.2 % (20.0-50.0) L 06/23/18 05:45 Monocytes % 6.1 % (2.0-10.0) 06/23/18 05:45 Eosinophils % 3.2 % (0.0-5.0) 06/23/18 05:45 Basophils % 1.0 % (0.0-2.0) 06/23/18 05:45 PT 10.4 SECONDS (9.5-11.5) 06/20/18 13:50 INR 1.00 (0.5-1.4) 06/20/18 13:50 Sodium 140 mEq/L (136-145) 06/23/18 05:45 Potassium 3.5 mEq/L (3.5-5.1) 06/23/18 05:45 Chloride 106 mEq/L (98-107) 06/23/18 05:45 Carbon Dioxide 24.3 mEq/L (21.0-31.0) 06/23/18 05:45 Anion Gap 13.2 (7.0-16.0) 06/23/18 05:45 BUN 8 mg/dL (7-25) 06/23/18 05:45 Creatinine 0.3 mg/dL (0.6-1.2) L 06/23/18 05:45 Est GFR ( Amer) > 60.0 ml/min (>90) 06/23/18 05:45 Est GFR (Non-Af Amer) > 60.0 ml/min 06/23/18 05:45 BUN/Creatinine Ratio 26.7 06/23/18 05:45 Glucose 84 mg/dL (70-105) 06/23/18 05:45 POC Glucose 211 MG/DL (70 - 105) H 06/24/18 12:00 Calcium 8.8 mg/dL (8.6-10.3) 06/23/18 05:45 Magnesium 2.0 mg/dL (1.9-2.7) 06/21/18 06:30 Total Bilirubin 1.3 mg/dL (0.3-1.0) H 06/23/18 05:45 AST 61 U/L (13-39) H 06/23/18 05:45 ALT 79 U/L (7-52) H 06/23/18 05:45 Alkaline Phosphatase 291 U/L (34-104) H 06/23/18 05:45 Creatine Kinase 17 U/L (30-223) L 06/20/18 13:50 Troponin I 0.02 ng/mL (0.01-0.05) 06/20/18 13:50 B-Natriuretic Peptide 14.5 pg/mL (5.0-100.0) 06/20/18 13:50 Total Protein 5.6 gm/dL (6.0-8.3) L 06/23/18 05:45 Albumin 3.3 gm/dL (3.7-5.3) L 06/23/18 05:45 Globulin 2.3 gm/dL 06/23/18 05:45 Albumin/Globulin Ratio 1.4 (1.0-1.8) 06/23/18 05:45 Triglycerides 94 mg/dL (<150) 06/20/18 13:50 Cholesterol 211 mg/dL (<200) H 06/20/18 13:50 LDL Cholesterol Direct 130 mg/dL (75-193) 06/20/18 13:50 HDL Cholesterol 67 mg/dL (23-92) 06/20/18 13:50 Amylase 43 U/L (29-103) 06/20/18 13:50 Lipase 38 U/L (11-82) 06/20/18 13:50 TSH 3.23 uIU/ml (0.34-5.60) 06/21/18 06:30 Serum , Qual NEGATIVE (NEGATIVE) 06/20/18 13:58 Urine Source CLEAN C 06/20/18 15:00 Urine Color YELLOW 06/20/18 15:00 Urine Clarity CLEAR (CLEAR) 06/20/18 15:00 Urine pH 6.5 (4.6 - 8.0) 06/20/18 15:00 Ur Specific [place] 1.015 (1.005-1.030) 06/20/18 15:00 Urine Protein NEGATIVE mg/dL (NEGATIVE) 06/20/18 15:00 Urine Glucose (UA) NEGATIVE mg/dL (NEGATIVE) 06/20/18 15:00 Urine Ketones NEGATIVE mg/dL (NEGATIVE) 06/20/18 15:00 Urine Blood LARGE (NEGATIVE) H 06/20/18 15:00 Urine Nitrate NEGATIVE (NEGATIVE) 06/20/18 15:00 Urine Bilirubin NEGATIVE (NEGATIVE) 06/20/18 15:00 Urine Urobilinogen 0.2 E.U./dL (0.2 - 1.0) 06/20/18 15:00 Ur Leukocyte Esterase LARGE (NEGATIVE) H 06/20/18 15:00 Urine RBC 5-10 /hpf (0-5) H 06/20/18 15:00 Urine WBC 2-5 /hpf (0-5) 06/20/18 15:00 Ur Epithelial Cells FEW /lpf (FEW) 06/20/18 15:00 Urine Bacteria FEW /hpf (NONE SEEN) 06/20/18 15:00 Urine Test NEGATIVE 06/20/18 15:00 - Physical Exam Vitals and I&O: Vital Signs Temp 97.6 F 06/24/18 11:49 Pulse 97 06/24/18 11:49 Resp 18 06/24/18 11:49 BP 132/82 06/24/18 11:49 Pulse Ox 95 06/24/18 11:49 Intake & Output 06/23/18 06/24/18 06/24/18 18:59 06:59 18:59 Intake Total 100 320 Balance 100 320 Weight (lbs) 40.959 kg Intake: Intake, IV Amount 100 200 Piperacillin Sodium/ 100 200 Tazobact 4.5 gm In Sodium Chloride 0.9% 100 ml @ 100 mls/hr IV Q8HR [facility] Rx #:[id number] Oral 120 Other: # Voids 3 # Bowel Movements 2 Weight Source Bedscale Active Medications: Current Medications Acetaminophen (Tylenol) 650 mg PO Q4H PRN PRN Reason: Pain Or Fever above 101 Stop: 08/19/18 22:28 Last Admin: 06/21/18 22:15 Dose: 650 mg Acetaminophen/Hydrocodone Bitart ([place] 5mg/325mg) 1 tab PO Q4H PRN PRN Reason: Pain (Severe) Stop: 08/19/18 22:28 Al Hydrox/Mg Hydrox/Simethicone (Maalox) 30 ml PO Q6H PRN PRN Reason: Dyspepsia Stop: 08/19/18 22:28 Ascorbic Acid (Vitamin C) 500 mg PO DAILY [facility] Stop: 08/21/18 08:59 Last Admin: 06/24/18 08:36 Dose: 500 mg Baclofen (Lioresal) 20 mg PO BID [facility] Stop: 08/20/18 16:59 Last Admin: 06/24/18 08:38 Dose: 20 mg Clotrimazole (Lotrimin 1% Cream) 1 appl TP BID PRN PRN Reason: Psoriasis or Fungal Infection Stop: 08/19/18 22:23 Diphenhydramine HCl (Benadryl) 25 mg PO Q12H PRN PRN Reason: ITCHING Stop: 08/20/18 10:29 Guaifenesin (Robitussin) 200 mg PO Q4HR PRN PRN Reason: Cough or Congestion Stop: 08/19/18 22:28 Piperacillin Sod/Tazobactam (Sod 4.5 gm/ Sodium Chloride) 100 mls @ 100 mls/hr IV Q8HR [facility] Stop: 08/20/18 04:59 Last Admin: 06/24/18 13:22 Dose: 100 mls/hr Insulin Aspart (Novolog) 0 units SUBQ ACHS [facility]; Protocol Stop: 08/20/18 07:29 Last Admin: 06/24/18 13:18 Dose: Not Given Lactulose (Cephulac) 30 gm PO BID [facility] Stop: 08/20/18 16:59 Last Admin: 06/24/18 08:35 Dose: 30 gm Magnesium Hydroxide (Milk Of Magnesia) 30 ml PO Q2D PRN PRN Reason: Constipation Stop: 08/19/18 22:23 Miscellaneous (Budesonide [Budesonide Ec]) 9 mg PO DAILY [facility] Stop: 08/20/18 08:59 Mycophenolate Mofetil (Cellcept) 1,500 mg PO BID [facility] Stop: 08/20/18 16:59 Last Admin: 06/24/18 10:43 Dose: 1,500 mg Ondansetron HCl (Zofran) 4 mg IV Q8H PRN PRN Reason: Nausea / Vomiting Stop: 08/19/18 22:28 [facility]ole [facility]) [facility] Stop: 08/20/18 07:29 Last Admin: 06/24/18 06:31 Dose: 40 mg Polyethylene Glycol (Miralax) 17 gm PO BID [facility] Stop: 08/20/18 16:59 Last Admin: 06/24/18 08:35 Dose: 17 gm Pseudoephedrine HCl (Sudafed) 60 mg PO Q6H PRN PRN Reason: CONGESTION Stop: 08/20/18 10:31 Tramadol HCl (Ultram) 50 mg PO Q6HR PRN PRN Reason: Pain (Severe) Stop: 08/19/18 22:23 Last Admin: 06/23/18 02:46 Dose: 50 mg Vitamin D (Vitamin D) 400 iu PO DAILY [facility] Stop: 08/20/18 08:59 Last Admin: 06/24/18 08:36 Dose: 400 iu General: alert HEENT: NC/AT, PERRLA Neck: Supple, No JVD Lungs: rales, ronchi, chest deformity present Cardiovascular: RRR, Normal S1, Normal S2 Abdomen: soft, non-tender, globular Extremities: excoriation, contracture, deformity Neurological: no change Internal Medicine Assmt/Plan - Assessment Assessment: ASSESSMENT: Abdominal pain/pelvic pain, sever impaction,urinary tract infection , extended-spectrum beta-lactamase Escherichia coli, cerebral palsy, hypertension, and functional quadriplegia. urine culture e coli esbl - Plan Plan: PLAN: We will continue the patient on IV antibiotic, currently on IV Zosyn. We will review the patient's CT abdomen and pelvis and depending on results we may refer the patient to GI. We will continue to monitor the patient's liver function test. Continue with current care with followup consult and recommendations. dispo pending Nutritional Asmnt/Malnutr-PDOC - Dietary Evaluation Malnutrition Findings (Please click <Entered> for more info): Nutritional Asmnt/Malnutrition Start: 06/21/18 09: 34 Text: Status: Complete Freq: Protocol: Document 06/21/18 10:12 LCHENG (Rec: 06/21/18 10:30 [email or web address]) Nutritional Asmnt/Malnutrition Patient General Information Nutritional Screening High Risk Consult Diagnosis UTI&abd pain Pertinent Medical Hx/Surgical Hx HTN, DM, dystonia, hypatitis c , CP Subjective Information Consult received for blood sugar 238 at admission. Pt seen lying prone in bed at time of visit, family at bedside. Pt stated she has good appetite, no food preferece. Current Diet Order/ Nutrition Support regular Pertinent Medications novolog, protonix, piperacillin, vit D Pertinent Labs 06/21 Cl 108, cr 0.3, glucose 72, Ca 9.2, Mg 2.0 06/20 Cl 104, Cr 0.5, glucose 238, Ca 9.0 Nutritional Hx/Data Height 1.55 m Height (Calculated Centimeters) 154.9 Current Weight (lbs) 40.823 kg Weight (Calculated Kilograms) 40.8 Weight (Calculated Grams) 92649.3 Odd Body Weight 105 Body Mass Index (BMI) 16.9 Weight Status Underweight GI Symptoms GI Symptoms None Last BM not indicated Difficult in: None Skin Integrity/Comment: pressure area to right lower abd, R/L foot, scar to left lower back and left buttocks [place] 13 Estimated Nutritional Goals BEE in Kcals: Using Current wt Calories/Kcals/Kg 30-35 Kcals Calculated [id number] Protein: Using Current wt Protein g/k.2-1.4 Protein Calculated 49-57 Fluid: ml 1230-1435ml (1ml/kcal) Nutritional Problem 1. Problem Problem altered nutrition related labs Etiology hx of DM, endocrine dysfunction Signs/Symptoms: BS 238 at admission Intervention/Recommendation Comments 1. Continue with regular diet as ordered. Consider offer nutrition supplements if PO not meeting nutritional needs d/t pt is underweight. 2. Consider CCHO diet if glucose continue elevated. 3. Monitor PO intake, wt, labs and skin integrity 4. F/U as moderate risk in 3-5 days, 06/24-06/26 Expected Outcomes/Goals Expected Outcomes/Goals 1. PO intake to meet at least 75% of nutritional needs. 2. Wt stability, skin to remain intact, labs to approach WNL.
[2018-06-25] MEDS: INSULIN ASPART, RECOMBINANT 100 UNITS/ML SUBQ SCH ×3 (08:16→17:41)
[2018-06-25] MEDS: POLYETHYLENE GLYCOL 3350 17 GM PACK PO SCH ×2 (08:21→17:41)
[2018-06-25] MEDS: Lactulose 10 Gm/15 mL 30mL UDC PO SCH ×2 (08:21→17:41)
[2018-06-25] MEDS: Multivitamin w/ Minerals Tab PO SCH (08:22)
[2018-06-25] MEDS: Pantoprazole 40 mg EC Tab PO SCH ×2 (08:22→17:41)
--- NOTE | 2018-06-25 10:26 | Diagnostic Imaging Report ---
KUB abdominal film HISTORY: Pain, constipation The exam demonstrates a distended stool-filled rectum consistent with a fecal impaction. Nondilated bowel noted. There is a distended air-filled stomach. IMPRESSION: 1. Distended stool-filled rectum consistent with a degree of fecal impaction 2. Dilated air-filled stomach. Significance should be correlated clinically
--- NOTE | 2018-06-25 14:08 | Internal Medicine Prog Note ---
Internal Medicine Subjective - Subjective Service Date: 06/25/18 Patient is:: awake, verbal, interactive, in bed, other (laying face down) Patient Complaints of:: congestion, constipation, pain with urination Per staff patient has:: no adverse event, no episodes of fall, poor oral intake , tolerating meds Internal Medicine Objective - Results Result Diagrams: 06/23/18 05:45 06/23/18 05:45 Recent Labs: Laboratory Last Values WBC 10.8 Th/cmm (4.8-10.8) 06/23/18 05:45 RBC 4.48 Mil/cmm (3.80-5.10) 06/23/18 05:45 Hgb 14.0 gm/dL (12-16) 06/23/18 05:45 Hct 41.2 % (41.0-60) 06/23/18 05:45 MCV 92.0 fl (81-100) 06/23/18 05:45 MCH 31.3 pg (27.0-31.0) H 06/23/18 05:45 MCHC Differential 34.0 pg (28.0-36.0) 06/23/18 05:45 RDW 13.7 % (11.5-20.0) 06/23/18 05:45 Plt Count 128 Th/cmm (150-400) L 06/23/18 05:45 MPV 7.7 fl 06/23/18 05:45 Neutrophils % 71.5 % (40.0-80.0) 06/23/18 05:45 Lymphocytes % 18.2 % (20.0-50.0) L 06/23/18 05:45 Monocytes % 6.1 % (2.0-10.0) 06/23/18 05:45 Eosinophils % 3.2 % (0.0-5.0) 06/23/18 05:45 Basophils % 1.0 % (0.0-2.0) 06/23/18 05:45 PT 10.4 SECONDS (9.5-11.5) 06/20/18 13:50 INR 1.00 (0.5-1.4) 06/20/18 13:50 Sodium 140 mEq/L (136-145) 06/23/18 05:45 Potassium 3.5 mEq/L (3.5-5.1) 06/23/18 05:45 Chloride 106 mEq/L (98-107) 06/23/18 05:45 Carbon Dioxide 24.3 mEq/L (21.0-31.0) 06/23/18 05:45 Anion Gap 13.2 (7.0-16.0) 06/23/18 05:45 BUN 8 mg/dL (7-25) 06/23/18 05:45 Creatinine 0.3 mg/dL (0.6-1.2) L 06/23/18 05:45 Est GFR ( Amer) > 60.0 ml/min (>90) 06/23/18 05:45 Est GFR (Non-Af Amer) > 60.0 ml/min 06/23/18 05:45 BUN/Creatinine Ratio 26.7 06/23/18 05:45 Glucose 84 mg/dL (70-105) 06/23/18 05:45 POC Glucose 159 MG/DL (70 - 105) H 06/25/18 11:35 Calcium 8.8 mg/dL (8.6-10.3) 06/23/18 05:45 Magnesium 2.0 mg/dL (1.9-2.7) 06/21/18 06:30 Total Bilirubin 1.3 mg/dL (0.3-1.0) H 06/23/18 05:45 AST 61 U/L (13-39) H 06/23/18 05:45 ALT 79 U/L (7-52) H 06/23/18 05:45 Alkaline Phosphatase 291 U/L (34-104) H 06/23/18 05:45 Creatine Kinase 17 U/L (30-223) L 06/20/18 13:50 Troponin I 0.02 ng/mL (0.01-0.05) 06/20/18 13:50 B-Natriuretic Peptide 14.5 pg/mL (5.0-100.0) 06/20/18 13:50 Total Protein 5.6 gm/dL (6.0-8.3) L 06/23/18 05:45 Albumin 3.3 gm/dL (3.7-5.3) L 06/23/18 05:45 Globulin 2.3 gm/dL 06/23/18 05:45 Albumin/Globulin Ratio 1.4 (1.0-1.8) 06/23/18 05:45 Triglycerides 94 mg/dL (<150) 06/20/18 13:50 Cholesterol 211 mg/dL (<200) H 06/20/18 13:50 LDL Cholesterol Direct 130 mg/dL (75-193) 06/20/18 13:50 HDL Cholesterol 67 mg/dL (23-92) 06/20/18 13:50 Amylase 43 U/L (29-103) 06/20/18 13:50 Lipase 38 U/L (11-82) 06/20/18 13:50 TSH 3.23 uIU/ml (0.34-5.60) 06/21/18 06:30 Serum , Qual NEGATIVE (NEGATIVE) 06/20/18 13:58 Urine Source CLEAN C 06/20/18 15:00 Urine Color YELLOW 06/20/18 15:00 Urine Clarity CLEAR (CLEAR) 06/20/18 15:00 Urine pH 6.5 (4.6 - 8.0) 06/20/18 15:00 Ur Specific [place] 1.015 (1.005-1.030) 06/20/18 15:00 Urine Protein NEGATIVE mg/dL (NEGATIVE) 06/20/18 15:00 Urine Glucose (UA) NEGATIVE mg/dL (NEGATIVE) 06/20/18 15:00 Urine Ketones NEGATIVE mg/dL (NEGATIVE) 06/20/18 15:00 Urine Blood LARGE (NEGATIVE) H 06/20/18 15:00 Urine Nitrate NEGATIVE (NEGATIVE) 06/20/18 15:00 Urine Bilirubin NEGATIVE (NEGATIVE) 06/20/18 15:00 Urine Urobilinogen 0.2 E.U./dL (0.2 - 1.0) 06/20/18 15:00 Ur Leukocyte Esterase LARGE (NEGATIVE) H 06/20/18 15:00 Urine RBC 5-10 /hpf (0-5) H 06/20/18 15:00 Urine WBC 2-5 /hpf (0-5) 06/20/18 15:00 Ur Epithelial Cells FEW /lpf (FEW) 06/20/18 15:00 Urine Bacteria FEW /hpf (NONE SEEN) 06/20/18 15:00 Urine Test NEGATIVE 06/20/18 15:00 - Physical Exam Vitals and I&O: Vital Signs Temp 97.6 F 06/25/18 12:03 Pulse 80 06/25/18 12:03 Resp 18 06/25/18 12:03 BP 118/72 06/25/18 12:03 Pulse Ox 97 06/25/18 12:03 Intake & Output 06/24/18 06/25/18 06/25/18 18:59 06:59 18:59 Intake Total 1000 400 100 Balance 1000 400 100 Weight (lbs) 90 lb 92 lb Intake: Intake, IV Amount 300 100 Piperacillin Sodium/ 300 100 Tazobact 4.5 gm In Sodium Chloride 0.9% 100 ml @ 100 mls/hr IV Q8HR [facility] Rx #:[id number] Oral 1000 100 Other: # Voids 3 1 # Bowel Movements 1 1 Stool Characteristics Soft Weight Source Bedscale Bedscale Active Medications: Current Medications Acetaminophen (Tylenol) 650 mg PO Q4H PRN PRN Reason: Pain Or Fever above 101 Stop: 08/19/18 22:28 Last Admin: 06/21/18 22:15 Dose: 650 mg Acetaminophen/Hydrocodone Bitart ([place] 5mg/325mg) 1 tab PO Q4H PRN PRN Reason: Pain (Severe) Stop: 08/19/18 22:28 Al Hydrox/Mg Hydrox/Simethicone (Maalox) 30 ml PO Q6H PRN PRN Reason: Dyspepsia Stop: 08/19/18 22:28 Ascorbic Acid (Vitamin C) 500 mg PO DAILY [facility] [place] Stop: 08/21/18 08:59 Last Admin: 06/25/18 08:22 Dose: 500 mg Baclofen (Lioresal) 20 mg PO BID [facility] [place] Stop: 08/20/18 16:59 Last Admin: 06/25/18 08:21 Dose: 20 mg Clotrimazole (Lotrimin 1% Cream) 1 appl TP BID PRN PRN Reason: Psoriasis or Fungal Infection Stop: 08/19/18 22:23 Diphenhydramine HCl (Benadryl) 25 mg PO Q12H PRN PRN Reason: ITCHING Stop: 08/20/18 10:29 Guaifenesin (Robitussin) 200 mg PO Q4HR PRN PRN Reason: Cough or Congestion Stop: 08/19/18 22:28 Piperacillin Sod/Tazobactam (Sod 4.5 gm/ Sodium Chloride) 100 mls @ 100 mls/hr IV Q8HR [facility] [place] Stop: 08/20/18 04:59 Last Infusion: 06/25/18 13:01 Dose: Infused Insulin Aspart (Novolog) 0 units SUBQ ACHS [facility] [place]; Protocol Stop: 08/20/18 07:29 Last Admin: 06/25/18 11:42 Dose: Not Given Lactulose (Cephulac) 30 gm PO BID [facility] [place] Stop: 08/20/18 16:59 Last Admin: 06/25/18 08:21 Dose: 30 gm Magnesium Hydroxide (Milk Of Magnesia) 30 ml PO Q2D PRN PRN Reason: Constipation Stop: 08/19/18 22:23 Miscellaneous (Budesonide [Budesonide Ec]) 9 mg PO DAILY [facility] [place] Stop: 08/20/18 08:59 Mycophenolate Mofetil (Cellcept) 1,500 mg PO BID [facility] [place] Stop: 08/20/18 16:59 Last Admin: 06/25/18 08:34 Dose: 1,500 mg Ondansetron HCl (Zofran) 4 mg IV Q8H PRN PRN Reason: Nausea / Vomiting Stop: 08/19/18 22:28 [facility]oprazole [facility]) [facility] Stop: 08/20/18 07:29 Last Admin: 06/25/18 08:22 Dose: 40 mg Polyethylene Glycol (Miralax) 17 gm PO BID [facility] [place] Stop: 08/20/18 16:59 Last Admin: 06/25/18 08:21 Dose: 17 gm Pseudoephedrine HCl (Sudafed) 60 mg PO Q6H PRN PRN Reason: CONGESTION Stop: 08/20/18 10:31 Tramadol HCl (Ultram) 50 mg PO Q6HR PRN PRN Reason: Pain (Severe) Stop: 08/19/18 22:23 Last Admin: 06/23/18 02:46 Dose: 50 mg Vitamin D (Vitamin D) 400 iu PO DAILY [facility] [place] Stop: 08/20/18 08:59 Last Admin: 06/25/18 08:22 Dose: 400 iu General: alert HEENT: NC/AT, PERRLA Neck: Supple, No JVD Lungs: rales, ronchi, chest deformity present Cardiovascular: RRR, Normal S1, Normal S2 Abdomen: soft, non-tender, globular Extremities: excoriation, contracture, deformity Neurological: no change Internal Medicine Assmt/Plan - Assessment Assessment: ASSESSMENT: Abdominal pain/pelvic pain, sever impaction,urinary tract infection , extended-spectrum beta-lactamase Escherichia coli, cerebral palsy, hypertension, and functional quadriplegia. - Plan Plan: await for bed at [facility] for ivabx x 7 days continue current plan of care Nutritional Asmnt/Malnutr-PDOC - Dietary Evaluation Malnutrition Findings (Please click <Entered> for more info): Nutritional Asmnt/Malnutrition Start: 06/21/18 09: 34 Text: Status: Complete Freq: Protocol: Document 06/21/18 10:12 LCHENG (Rec: 06/21/18 10:30 [email or web address]) Nutritional Asmnt/Malnutrition Patient General Information Nutritional Screening High Risk Consult Diagnosis UTI&abd pain Pertinent Medical Hx/Surgical Hx HTN, DM, dystonia, hypatitis c , CP Subjective Information Consult received for blood sugar 238 at admission. Pt seen lying prone in bed at time of visit, family at bedside. Pt stated she has good appetite, no food preferece. Current Diet Order/ Nutrition Support regular Pertinent Medications novolog, protonix, piperacillin, vit D Pertinent Labs 06/21 Cl 108, cr 0.3, glucose 72, Ca 9.2, Mg 2.0 06/20 Cl 104, Cr 0.5, glucose 238, Ca 9.0 Nutritional Hx/Data Height 5 ft 1 in Height (Calculated Centimeters) 154.9 Current Weight (lbs) 90 lb Weight (Calculated Kilograms) 40.8 Weight (Calculated Grams) 66604.3 [place] Body Weight 105 Body Mass Index (BMI) 16.9 Weight Status Underweight GI Symptoms GI Symptoms None Last BM not indicated Difficult in: None Skin Integrity/Comment: pressure area to right lower abd, R/L foot, scar to left lower back and left buttocks [place] 13 Estimated Nutritional Goals BEE in Kcals: Using Current wt Calories/Kcals/Kg 30-35 Kcals Calculated [id number] Protein: Using Current wt Protein g/k.2-1.4 Protein Calculated 49-57 Fluid: ml 1230-1435ml (1ml/kcal) Nutritional Problem 1. Problem Problem altered nutrition related labs Etiology hx of DM, endocrine dysfunction Signs/Symptoms: BS 238 at admission Intervention/Recommendation Comments 1. Continue with regular diet as ordered. Consider offer nutrition supplements if PO not meeting nutritional needs d/t pt is underweight. 2. Consider CCHO diet if glucose continue elevated. 3. Monitor PO intake, wt, labs and skin integrity 4. F/U as moderate risk in 3-5 days, 06/24-06/26 Expected Outcomes/Goals Expected Outcomes/Goals 1. PO intake to meet at least 75% of nutritional needs. 2. Wt stability, skin to remain intact, labs to approach WNL.
== END 2018-06-25 18:45 | DRG 871 ==
LOC: ER 13:15 → MSI 18:40
PROVIDERS: ADMIT Internal Medicine; ATTEND Internal Medicine
DX: A41.9 Sepsis, unspecified organism (principal); R53.2 Functional quadriplegia; K56.2 Volvulus; N39.0 Urinary tract infection, site not specified; K56.41 Fecal impaction; G80.9 Cerebral palsy, unspecified; I10 Essential (primary) hypertension; B19.20 Unspecified viral hepatitis C without hepatic coma; E11.65 Type 2 diabetes mellitus with hyperglycemia; N20.0 Calculus of kidney; E86.0 Dehydration; G24.9 Dystonia, unspecified; K72.10 Chronic hepatic failure without coma; B96.20 Unspecified Escherichia coli [E. coli] as the cause of diseases classified elsewhere; Z16.12 Extended spectrum beta lactamase (ESBL) resistance; Z88.8 Allergy status to other drugs, medicaments and biological substances; Z83.3 Family history of diabetes mellitus; Z82.49 Family history of ischemic heart disease and other diseases of the circulatory system; Z79.4 Long term (current) use of insulin; Z88.2 Allergy status to sulfonamides; Z88.1 Allergy status to other antibiotic agents; Z74.01 Bed confinement status
CPT/HCPCS: 36415-UA; 74000-TC; 80048-TC; 80053-TC; 80061-TC; 81001-TC; 81025-TC; 82150-TC; 82550-TC; 82948-90; 83036-90; 83690-TC; 83735-TC; 83880-TC; 84443-TC; 84484-TC; 84703-TC; 85025-TC; 85610-TC; 87086-90; 93005; 94760; J0696; J1815; J2543; J7030; J7040; Z7610